=== PATIENT | female | born 1945 | race Caucasian/White ===

== ENCOUNTER 2017-04-16 09:16 | Outpatient (CLI) | payer MEDICARE, BC ==
--- NOTE | 2017-04-16 10:59 | CT ---
CT ABDOMEN AND PELVIS WITH IV AND ORAL CONTRAST: Date: 04/16/17 HISTORY: B-cell lymphoma. Elevated calcium level. Restaging. Right upper quadrant pain. COMPARISON: PET scan from 03/04/16. FINDINGS: The lung bases are clear. An oval right cardiophrenic lymph node is 2.3 cm greatest diameter. A smal l amount of free fluid is now apparent within the upper abdomen and dependent portion of the pelvis. The large lobulated confluent adenopathy involving the anterior mesentery and central mesentery is again demonstrated. Allowing for differences in technique, there has been no significant change in s ize. Small nodular peritoneal implant is present at the right posterior dependent portion of the pel vis, projecting into the free fluid. The gallbladder is surgically absent. There is calcification of the arterial structures. No evidence of bowel obstruction. IMPRESSION: 1. Small amount of abdominal fluid has developed since the PET scan 1 year ago. The confluent abdom inal adenopathy has not changed significantly in extent or size. 2. Atherosclerosis. POS: TOY
[2017-04-16] MEDS ORDERED: Iopamidol 370 76% 100 ML VIAL ONE (14:59)
== END 2017-04-16 09:17 | disposition home or self-care (01) ==
LOC: CT 09:16
PROVIDERS: ATTEND Internal Medicine Medical Oncology
DX: C82.03 Follicular lymphoma grade I, intra-abdominal lymph nodes (principal); C83.38 Diffuse large B-cell lymphoma, lymph nodes of multiple sites; R10.11 Right upper quadrant pain; R59.0 Localized enlarged lymph nodes; I70.90 Unspecified atherosclerosis
CPT/HCPCS: 74177; 82565

== ENCOUNTER 2017-04-16 22:12 | Inpatient (IN) | payer MEDICARE, BC ==
--- NOTE | 2017-04-16 23:24 | RAD ---
UPRIGHT PORTABLE CHEST ONE VIEW: 04/16/17 HISTORY: 71-year-old female with history of fever, little cough and abdominal pain. COMPARISON: 08/05/16. FINDINGS: A right subclavian catheter and injection port. Heart size is within normal limits. No confluent pne umonia, overt edema or pleural effusion. IMPRESSION: No acute intrathoracic disease. Stable from prior study. POS: STANLEYH
[2017-04-16 23:33] LABS: Lactic Acid - Sepsis 1.2 mmol/L (0.5-2.2)
[2017-04-16] MEDS ORDERED: Piperacillin/Tazobactam 3.375 GM VIAL ONE (23:36)
[2017-04-16] MEDS ORDERED: Acetaminophen 500 MG TAB ONE (23:36)
[2017-04-16] MEDS ORDERED: Sodium Chloride 0.9% 100 ML ONE (23:36)
[2017-04-16 23:37] LABS: ALT (SGPT) 10 U/L (8-55); AST (SGOT) 27 U/L (5-34); Alkaline Phosphatase 59 U/L (40-150); Anion Gap 13 mmol/L (10-20); BUN (Urea Nitrogen) 24 mg/dL (9.8-20.1); Bilirubin, Total 0.7 mg/dL (0.2-1.2); Calc. Creatinine Clearance 0 mL/min (70-130); Carbon Dioxide 24 mmol/L (23-31); Chloride 99 mmol/L (98-107); Estimated GFR-MDRD 34; Globulin 2.5 g/dL (2.4-3.5); Protein, Total 5.7 g/dL (6.0-8.3)
[2017-04-16 23:46] LABS: Band 2 % (5-11); Hematocrit 21.3 % (36.0-47.0); Mean Platelet Volume 7.5 fL (7.4-10.4); Neutrophil 69 % (42-75); Red Blood Cell (RBC) Count 2.23 mill/uL (4.20-5.40); White Blood Cell (WBC) Count 1.8 thou/uL (4.8-10.8)
[2017-04-16 23:55] LABS: Calcium 12.1 mg/dL (7.8-10.44)
[2017-04-17 01:16] LABS: Bilirubin Negative (Negative); Blood, Urine Negative (Negative); Glucose, Urine (Dipstick) Negative (Negative); Ketone, Urine Negative (Negative); Nitrite Negative (Negative); Protein, Urine (Dipstick) Negative (Neg-Trace); Urobilinogen 0.2 mg/dL (0.2-1.0)
[2017-04-17] MEDS ORDERED: HYDROcodone/Acetaminophen 5/325 mg Tablet PO PRN (02:34)
[2017-04-17] MEDS ORDERED: Ondansetron ODT 4 MG TAB PO PRN (02:34)
[2017-04-17] MEDS ORDERED: HYDROcodone/Acetaminophen 10/325 mg Tablet PO PRN (02:34)
[2017-04-17] MEDS: Sodium Chloride 0.9% 1,000 ML IV SCH ×3 (03:37→17:06)
--- NOTE | 2017-04-17 06:25 | HP ---
DATE OF ADMISSION: 04/17/2017 CHIEF COMPLAINT: Fever. HISTORY OF PRESENT ILLNESS: Ms. Cutler is a very pleasant 71-year-old female with history of lymphoma, myelodysplasia, hypertension, hyperlipidemia, who is currently undergoing chemotherapy for her myelodysplasia. She had her first cycle of this current round of treatment about 2 weeks ago, was due for a second cycle about a week ago, but due to low counts was being held. She has had some low-grade fevers for some time up to around 100, but today developed temperature to 102.3. She was sent to the emergency department for evaluation by her oncologist. There, she was noted to have confirmed fever. She has been having chills, a little bit of headache, and some dyspnea on exertion with a slight cough, but nonproductive of any other than a little bit of clear sputum. She had some right-sided abdominal pain for which she had a CAT scan done yesterday, but otherwise had no other current complaints. She does complain of chills, no rigors, no nausea, and vomiting. No diarrhea, constipation, no hematuria. She uses [employer] has livestock that her attends to, but all are well , she has been avoiding fresh fruits and vegetables, she did not have any recent travel or imported foods and no sick contacts. Her biggest complaint is constipated that she takes stool softeners for, but again had a CT scan for some right upper quadrant pains. PAST MEDICAL HISTORY: 1. Lymphoma. 2. Hypertension 3. Hyperlipidemia. 4. Myelodysplasia. PAST SURGICAL HISTORY: Include, 1. Hernia repair, 10-12 years ago. 2. Cholecystectomy in 2007 or 2008 and bilateral tubal ligation remotely. HOME MEDICATIONS: 1. Allopurinol 300 mg p.o. every other day. 2. Coreg 25 mg b.i.d. 3. D3 of 1000 units b.i.d. 4. Cozaar 50 mg daily. 5. Melatonin 3 mg p.o. at bedtime. 6. Multivitamin daily. 7. Pravastatin 40 mg p.o. at bedtime. 8. CoQ10. 9. B complex daily. 10. Nystatin swish and swallow. 11. Levofloxacin 500 mg daily for the last 6 weeks or so. 12. Magic mouthwash 10 mL p.o. q.i.d. swish and spit. FAMILY HISTORY: Negative for clotting or bleeding disorder. Dad did have liver cancer and at age 74. SOCIAL HISTORY: Significant for past tobacco. She quit on 01/11/2008 after initial diagnosis of lymphoma. She smoked about 1 pack per day for about 10 years. REVIEW OF SYSTEMS: A 10-point review of systems was performed and negative for all other systems except as stated as per HPI. PHYSICAL EXAMINATION: VITAL SIGNS: Temperature current is normal. Temperature on arrival was 100.1, temperature max on arrival was 102.3. Pulse current is 97, pulse max is 108, blood pressure 120/55, respiratory rate 16, satting 94% on room air. GENERAL: She is awake. She is alert. She is oriented X 3. She is an older white female, appears to be in no distress. and daughter at the bedside. HEENT: Normocephalic, atraumatic. Pupils equal and reactive to light bilaterally, mucous membranes are moist. She has no visible lesions or ulcers. She does have some thrush present on the tonsillar pillars and posterior oropharynx. NECK: Supple. There is no lymphadenopathy, JVD, or thyromegaly. She had normal carotid upstrokes. CHEST: Clear to auscultation bilaterally without wheeze, rales, or rhonchi. She has normal chest excursion and good air exchange. CARDIOVASCULAR: Normal S1 and S2, she is in normal cardiac and regular. She has no audible murmurs. ABDOMEN: Obese. It is nontender, nondistended. She has no rebound, rigidity, or guarding with normoactive bowel sounds present in all 4 quadrants. EXTREMITIES: Show no cyanosis, no clubbing, no edema, 2+ peripheral pulses. SKIN: Warm and was well perfused. She has no rashes, no lesions. MUSCULOSKELETAL: Normal to inspection. She has no palpable joint effusion. No hemarthrosis and no inflamed joints. NEUROLOGIC: Cranial nerves II through XII are grossly intact with normal speech pattern. She has normal strength and no focal deficits. LABORATORY EVALUATION: CMP is normal except for creatinine of 1.50 from a normal of around 0.9 to 0.99. Calcium was 12.1. Lactic acid is 1.2. Liver functions are normal. Albumin is a little bit low at 3.2. Influenza screen was negative. Urinalysis negative. CBC showed a white count of 1.8 with 69% granulocytes, 2% bands, giving her ANC total of 1278, hemoglobin 7.5, hematocrit of 21.3, and platelet count of 97,000. Chest x-ray is negative for acute cardiopulmonary disease. CT scan of the abdomen yesterday showed lymphadenopathy, primarily in the superior mesenteric area to be unchanged. She has a mild amount of fluid in the belly. There is no evidence of perforation. ASSESSMENT AND PLAN: 1. Neutropenic fever: Patient has neutropenia by some standards. Absolute neutrophil count is around 1278. She was placed on neutropenic precautions. Started on cefepime 2 grams q.12 hours, repeat labs in the morning, and ask Oncology for input. 2. Differential diagnosis includes infection versus mucositis, which I do not see evidence of, versus fever associated with reconstitution of her immune system. She stated that her white count at one point was very very low and is obviously not now. I suspect, she may be recovering her counts. 3. Acute kidney injury: Creatinine 1.5, normal is less than 1. We will hydrate her and recheck her creatinine in the morning. 4. Hypercalcemia: Unsure of the etiology. Again, we will treat with IV fluids and recheck. 5. Pancytopenia secondary to chemotherapy per Oncology. Patient is on allopurinol. 6. Hypertension on Cozaar and Coreg. We will continue. 7. Hyperlipidemia on pravastatin. We will hold that for now. 8. Prophylactic antibiotic with Levaquin, we will hold that while she is on cefepime. MTDD
[2017-04-17 06:26] LABS: Anion Gap 9 mmol/L (10-20); BUN (Urea Nitrogen) 25 mg/dL (9.8-20.1); Calc. Creatinine Clearance 0 mL/min (70-130); Carbon Dioxide 28 mmol/L (23-31); Chloride 104 mmol/L (98-107); Estimated GFR-MDRD 35
[2017-04-17 06:30] LABS: Band 8 % (5-11); Hematocrit 17.9 % (36.0-47.0); Mean Platelet Volume 7.4 fL (7.4-10.4); Neutrophil 53 % (42-75); Nucleated RBC 1 % (0); Red Blood Cell (RBC) Count 1.87 mill/uL (4.20-5.40)
[2017-04-17 06:37] VITALS: BMI 42.5
[2017-04-17] MEDS: Cefepime 2 GM in Sodium Chloride 0.9% 100 ML IVPB SCH ×2 (09:47→20:02)
[2017-04-17] MEDS: Allopurinol 300 MG TAB PO SCH (09:47)
[2017-04-17] MEDS: Docusate 100 MG CAP PO SCH ×2 (09:47→20:08)
[2017-04-17] MEDS: Acetaminophen 325 MG TAB PO PRN ×2 (09:49→20:03)
[2017-04-17] MEDS: Losartan Potassium 25 MG TAB PO SCH (09:50)
[2017-04-17] MEDS: Carvedilol 25 MG TAB PO SCH ×2 (09:50→20:11)
--- NOTE | 2017-04-17 11:14 | CON ---
DATE OF CONSULTATION: 04/17/2017 REASON FOR CONSULTATION: Neutropenic fever. HISTORY OF PRESENT ILLNESS: Ms. Cutler is a 71-year-old female, who is undergoing treatment with angie motherapy consisting of Dacogen for myelodysplastic syndrome. She has complicated oncological histo ry. She was diagnosed originally with diffuse large B-cell lymphoma in 2007, underwent treatment, a nd was in remission in 2016 when she presented with follicular lymphoma. She again underwent chemot herapy with R-CHOP. She was on maintenance Rituxan until recently. This past December, patient began t o have significant pancytopenia. She was reevaluated at [facility]. Bone marrow showed myelodyspl astic syndrome. She still had a follicular lymphoma requiring treatment. Decision was made to begi n Dacogen. She received her first cycle on 03/11 through 03/13. She presented to our clinic last [place] for cycle 2; however, she was profoundly neutropenic with a white count of 200. She has had int ermittent low-grade fevers. She was currently on a 10-day regimen of Levaquin. This past week, she complained of right rib pain. Routine chemistry showed calcium of 13. On Thursday, 04/15, for sh e was given Zometa and IV fluids. She returned on the for an additional liter of fluid. She [place] d a CT scan performed yesterday, which showed a small amount of free fluid in the abdomen. Her abdo shaquille adenopathy had not changed since the previous year's PET scan. Last night, she developed a fe rafia of 101.5. She was sent to the emergency room, so she was pancultured and started on cefepime. She has been given IV fluids. We are seeing her for neutropenic fever. PAST MEDICAL HISTORY: 1. Diffuse large B-cell lymphoma in 2007. 2. Follicular lymphoma, active. 3. Myelodysplastic syndrome. 4. Hypertension. 5. Obesity. PAST SURGICAL HISTORY: Umbilical hernia repair. Bone marrow biopsies. ALLERGIES: ADHESIVE. HOME MEDICATIONS: 1. Allopurinol 300 mg daily. 2. Coreg 25 mg b.i.d. 3. Levaquin 500 mg daily. 4. Losartan 50 mg daily. 5. Potassium chloride 10 mEq daily. 6. Pravastatin 40 mg daily. FAMILY HISTORY: Her father had liver cancer. SOCIAL HISTORY: , lives with her spouse in [place], former smoker, no alcohol or illicit dr ug use. REVIEW OF SYSTEMS: Constitutional: Positive for fever and chills. No night sweats, recent weight loss or gain. Eyes: No blurred or double vision. ENT: No pain, hoarseness, sore throat, or dysph agia. Cardiovascular: No chest pain, palpitations, or syncope. Respiratory: Positive for occasio nal shortness of breath and cough. Gastrointestinal: No nausea, vomiting, diarrhea, constipation, or abdominal pain. Genitourinary: No dysuria or hematuria. Musculoskeletal: No joint or back ingrid n. Skin: No rash or pruritus. Hematologic: No bleeding, bruising, or clotting. Neurologic: Den ies weakness, headache, numbness, tingling or seizure activity. Psychiatric: No anxiety or depress ion. PHYSICAL EXAMINATION: VITAL SIGNS: Temperature is 97.5, pulse is 93, respiratory rate 20, BP is 122/56. She is 93% on ro om air. GENERAL: Well-developed, well-nourished female, in no acute distress. HEENT: Normocephalic, atraumatic. Pupils equal and reactive to light. NECK: Supple. CARDIOVASCULAR: Regular rate and rhythm. LUNGS: Clear to auscultation. ABDOMEN: Obese and nontender. Bowel sounds are positive. EXTREMITIES: No clubbing, cyanosis, or edema. SKIN: No rash. HEMATOLOGIC: No petechia or purpura. NEUROLOGICAL: Nonfocal. PSYCHIATRIC: The patient is alert and oriented and appropriate. PERTINENT LABORATORY AND X-RAYS: Current WBCs 1.0, hemoglobin 6.3, hematocrit 17.9, platelet count 70,000, 53% neutrophils, 8% bands, 32% lymphocytes. Sodium 137, potassium 3.5, chloride 104, CO2 is 28, BUN is 25, creatinine 1.47, calcium is 11, total bilirubin is 0.7, AST is 27, ALT is 10, alkali ne phosphatase is 59, serum total protein is 5.7, albumin 3.2, globulin 2.5. Urine was negative for bacteria. Chest x-ray showed no acute process. IMPRESSION: 1. Myelodysplastic syndrome, on Dacogen chemotherapy. 2. Follicular lymphoma. 3. History of diffuse large B-cell lymphoma. 4. Hypercalcemia, status post Zometa. 5. Neutropenic fever. 6. Worsening anemia. DISCUSSION: The patient will be transfused 1 unit of packed RBCs and we will follow her CBC daily. She has been started on IV fluids. Her anemia likely has a dilutional component, as yesterday she was 7.5 and has no active bleeding; however, she does require frequent transfusions of packed red bl ood cells. She has been started on empiric antibiotics; her cultures are currently pending. She is to have a bone scan on Thursday, and will have that done as an inpatient to see if we can figure out the source of her high calcium levels, appreciate Kerrie's management and assistance. Thank you for the consult. We will follow her closely.
--- NOTE | 2017-04-17 12:55 | RAD ---
CHEST 1 VIEW: HISTORY: Neutropenic fever. COMPARISON: Chest 1 view prior day. FINDINGS: Lungs are clear. No pneumothorax or effusion. Port catheter is similar. Tip in good position. IMPRESSION: 1. No acute intrathoracic abnormality. 2. Dense mitral annular calcifications. POS: OFF
--- NOTE | 2017-04-17 13:28 | PDOC.EVN ---
Event Note - Event Note Event Note: p.n dictated # [id number]
--- NOTE | 2017-04-17 15:35 | PRG ---
DATE OF SERVICE: 04/17/2017 SUBJECTIVE: The patient is a followup case of neutropenic fever. She has a complicated oncological history. Patient is complaining of severe low back pain. She is afebrile overnight. She has some wheezing, but denies any chest pain or shortness of breath. Overall, patient says she is feeling b main. The patient says she has no abdominal discomfort today. CT scan done yesterday showed lymph adenopathy unchanged. There was no perforation. OBJECTIVE: VITAL SIGNS: On examination, her blood pressure is 122/56, temperature 97.5, pulse rate 93, respira tions 20 and O2 sat 95% on room air. CHEST: Bilateral diminished breath sounds at bases. No wheezing, no rhonchi. Patient is not tachy pneic. CARDIOVASCULAR: S1 and S2 normal. No S3, S4 or murmur. ABDOMEN: Morbidly obese, soft and nontender. Bowel sounds are active. No guarding or rebound. Th e patient has mild right upper quadrant tenderness. BACK: There is lower lumbar spinal tenderness present. EXTREMITIES: No clubbing, cyanosis or edema. LABORATORY DATA: White count has gone down to 1, hemoglobin 6.3, hematocrit 17.9, platelets are 70, neutrophils are 53, bands are 8%. Cultures are so far negative. Sodium 137, potassium 3.5, chlori de 104, CO2 of 28, BUN 25 and creatinine 1.47 about the same. Calcium is 11, improved. Glucose is 92. IMAGING DATA: Chest x-ray done yesterday was negative. ASSESSMENT: 1. Neutropenic fever, improving. 2. Worsening neutropenia. 3. Back pain, rule out diskitis. 4. Hypercalcemia, improved. 5. Acute kidney injury, improved. 6. History of lymphoma, on chemotherapy. 7. Hypertension, controlled. 8. Hyperlipidemia. 9. Morbid obesity. 10. Anemia secondary to chemotherapy, worsening. 11. Abdominal pain of uncertain etiology. DISCUSSION: At this time, the patient is medically stable. We will continue with present antibioti cs. Follow up on the cultures. Monitor white count. We will transfuse as per Oncology Service. W e will monitor neutrophil count and start on G-CSF if okay with Oncology. We will check an MRI of t he spine to rule out diskitis. We will get Infectious Disease consultation. We will monitor calciu m, which is improving. If the patient is asymptomatic, we will adjust the pain medications. We adebayo l also check another chest x-ray and monitor respiratory status closely. Discussed with patient and at bedside, all questions answered.
--- NOTE | 2017-04-17 17:12 | CON ---
DATE OF CONSULTATION: 04/17/2017 REASON FOR CONSULTATION: Fever with neutropenia. HISTORY OF PRESENT ILLNESS: A 71-year-old patient who has a history of B cell lymphoma in the abdominal area treated in 2007 and in remission until 2016 when she developed recurrence. At that time, the patient had an omental biopsy and it demonstrated follicular lymphoma. The patient had a port placed on 08/05. Then, she was diagnosed with myelodysplastic syndrome and was started on chemotherapy with Dacogen, which is a demethylating agent used in the treatment of MDS. Also, according to Selene Gomez's notes, The patient had chemotherapy of R-CHOP in 2015 with maintenance Rituxan and then in 12/2016, she was diagnosed with MDS at [facility]. She has been profoundly neutropenic with a white cell, total neutrophil count of 200 with intermittent low-grade fevers and had been given Levaquin orally. Her calcium was noted to be 13 and then she was given Zometa and IV fluids. The patient had abdominal and pelvis CT from 04/16, which demonstrated clear lung bases, right cardiophrenic lymph nodes 2.3 cm, small amount of free fluid in the abdomen, upper side and lobulated adenopathy involving the anterior mesentery and central mesentery, which had been demonstrated previously, but no other findings of significance. The patient then developed a higher temperature elevation of 101.5 and was redirected to be admitted. She has been started on cefepime. Initial labs with normal urinalysis, a white cell count of 1.8 and total neutrophil count of about 1200. Patient is currently sitting by the bedside. She has moderate pain in the right upper quadrant wrapping around the flank region, which is a little bit different than the pain that she felt from the previously diagnosed follicular lymphoma. No headache. A little bit of headaches earlier, but not anymore. No visual symptoms, sore throat, odynophagia or dysphagia, no back pain. A little bit of cough with small amount of mucoid sputum production. No nasal symptoms or ear aches. No genitourinary symptoms. No joint symptoms. No skin disorder. Patient has a port, which has been accessed and the port does not have any symptoms of pain or other inflammatory changes noted. No neurological symptoms. PAST MEDICAL HISTORY: Diffuse large B cell lymphoma in 2007, treated and then recurrence at this time follicular phenotype in the abdominal area again; myelodysplastic syndrome, currently on treatment; chemotherapy treated with R- CHOP plus with maintenance Rituxan for the lymphoma; obesity and recent episode of severe neutropenia. PAST SURGICAL HISTORY: Umbilical hernia repair, bone marrow biopsies and omental biopsy. ALLERGIES: ADHESIVE TAPE. HOME MEDICATIONS: Allopurinol, Coreg, Levaquin, losartan, potassium and pravastatin. FAMILY HISTORY: Liver cancer. SOCIAL HISTORY: . Lives in [place] or close to it. Former smoker, quit in 2007. Drinks occasionally. PHYSICAL EXAMINATION: VITAL SIGNS: T-max 99, blood pressure 103/50, pulse 90, respirations 16-20 and O2 sat 93% to 95%. GENERAL: Appears in no distress. No abnormalities. SKIN: Port is accessed without inflammatory changes. No lymphadenopathy noted. HEENT: Ocular movements are conjugate. Oral cavity is normal. NECK: Supple. LUNGS: Symmetric breath sounds with faint basilar crackles, which cleared after deep breathing. A little bit of wheezing, but very faint in the anterior chest. HEART: S1 and S2, regular rate. No S3, S4 or murmurs. ABDOMEN: Protuberant, mildly tender in the right upper quadrant. No ascites noted. No organomegaly or bladder distention. EXTREMITIES: No joint inflammatory activity. Patient has 2+ edema in the lower extremities. Pulses are 1+ in dorsalis pedis. Cap refill is less than 3 seconds. Strength in all extremities are preserved. NEUROLOGIC: Cognitive function appears to be intact. LABORATORY AND IMAGING DATA: Today's white cell count 1.0 with total neutrophil count around 700 and hemoglobin of 6, MCV 95 and platelets 70. Sodium 137, creatinine 1.47, calcium is down to 11. Liver profile normal. Albumin 3.2. Chest x-ray with no obvious infiltrates. Abdomen and pelvis CT with the findings as described above. ASSESSMENT AND PLAN: Follicular lymphoma, which developed following treatment for B cell lymphoma few years ago. Now, patient with myelodysplastic syndrome, receiving a demethylating agent. Patient is admitted with fever and moderate neutropenia, some cough and a mild to moderate abdominal pain in the right upper quadrant with no dramatic findings in the CT scan of the abdomen. The patient has a port in place and therefore we will have to monitor blood cultures until the final results to make sure the device is not colonized. Patient presents as a low risk neutropenic presentation since the ANC count is higher than 500 and could potentially continue management in the outpatient setting if blood cultures remain negative until tomorrow. Transient bacteremia associated with the neutropenia is the more likely scenario. An early respiratory tract infection was not disclosed by the x-ray as not a possibility , a viral infection by different respiratory virus is considered, then we will go ahead and submit respiratory virus PCR panel. Opportunistic infectious processes are less likely, although not completely ruled out, and workup for such might be needed depending on clinical progress. MTDD
[2017-04-17] MEDS: Melatonin 3 MG TAB PO SCH (20:04)
[2017-04-18] MEDS: Sodium Chloride 0.9% 1,000 ML IV SCH (03:04)
[2017-04-18 07:01] LABS: Anisocytosis SLIGHT = 6-15 cells (100X) (0-5/hpf); Band 4 % (5-11); Hematocrit 21.3 % (36.0-47.0); Macrocytosis SLIGHT = 6-15 cells (100X) (0-5/hpf); Mean Platelet Volume 7.1 fL (7.4-10.4); Metamyelocyte 2 % (0-0); Neutrophil 56 % (42-75); Polychromasia SLIGHT = 2-3 cells (100X) (0-2/hpf); Red Blood Cell (RBC) Count 2.22 mill/uL (4.20-5.40); White Blood Cell (WBC) Count 1.7 thou/uL (4.8-10.8)
[2017-04-18 08:49] LABS: ALT (SGPT) 10 U/L (8-55); AST (SGOT) 33 U/L (5-34); Alkaline Phosphatase 53 U/L (40-150); Anion Gap 11 mmol/L (10-20); BUN (Urea Nitrogen) 19 mg/dL (9.8-20.1); Bilirubin, Total 0.3 mg/dL (0.2-1.2); Calc. Creatinine Clearance 62 mL/min (70-130); Calcium 10.7 mg/dL (7.8-10.44); Carbon Dioxide 24 mmol/L (23-31); Chloride 109 mmol/L (98-107); Estimated GFR-MDRD 38; Globulin 2.2 g/dL (2.4-3.5)
[2017-04-18] MEDS: Cefepime 2 GM in Sodium Chloride 0.9% 100 ML IVPB SCH ×2 (08:58→22:07)
[2017-04-18] MEDS: Carvedilol 25 MG TAB PO SCH ×2 (08:58→22:08)
[2017-04-18] MEDS: Docusate 100 MG CAP PO SCH ×2 (08:59→22:08)
[2017-04-18] MEDS: Losartan Potassium 25 MG TAB PO SCH (09:00)
[2017-04-18] MEDS ORDERED: Albuterol Sulfate 1.25 MG/3 ML NEB NEB PRN (10:42)
[2017-04-18] MEDS ORDERED: Furosemide 40 MG/4 ML VIAL SLOW IVP SCH (11:00)
--- NOTE | 2017-04-18 11:22 | PDOC.PN ---
- Subjective Encounter Start Date: 04/18/17 Encounter Start Time: 09:00 Subjective: pt c/o wheezing and LBP last PM. no fever -: received 1 unit PRBC yesterday -: ID/ oncology input appreciated pt states she still [place] sburning sensation to rt side of abdomen and pain radiating down rt foot - Objective Resuscitation Status: Resuscitation Status FULL:Full Resuscitation Vital Signs & Weight: Vital Signs (12 hours) Temp Pulse Resp BP Pulse Ox 04/18/17 11:11 97.9 F 77 18 105/50 L 97 04/18/17 08:52 98.2 F 95 18 135/60 97 I&O: 04/17/17 04/18/17 04/19/17 06:59 06:59 06:59 Intake Total 350 Balance 350 Result Diagrams: 04/18/17 06:05 04/18/17 06:07 Phys Exam - Physical Examination HEENT: PERRLA, moist MMs Neck: no nodes, no JVD, supple b/ l crackles present Cardiovascular: RRR, no significant murmur, no rub, gallop Gastrointestinal: soft, non-tender, no distention, positive bowel sounds pt is morbidly obese Musculoskeletal: no edema, pulses present, edema present Neurological: non-focal, normal sensation Lymphatic: no nodes Psychiatric: normal affect, A&O x 3 Dx/Plan (1) Neutropenic fever Code(s): D70.9 - NEUTROPENIA, UNSPECIFIED; R50.81 - FEVER PRESENTING WITH CONDITIONS CLASSIFIED ELSEWHERE Status: Acute (2) Lymphoma Status: Acute (3) MDS (myelodysplastic syndrome) Code(s): D46.9 - MYELODYSPLASTIC SYNDROME, UNSPECIFIED Status: Acute (4) Fluid overload Code(s): E87.70 - FLUID OVERLOAD, UNSPECIFIED Status: Acute (5) Acute bilateral low back pain with sciatica Code(s): M54.40 - LUMBAGO WITH SCIATICA, UNSPECIFIED SIDE Status: Acute (6) Obesity Code(s): E66.9 - OBESITY, UNSPECIFIED Status: Acute (7) Anemia due to chemotherapy Code(s): D64.81 - ANEMIA DUE TO ANTINEOPLASTIC CHEMOTHERAPY; T45.1X5A - ADVERSE EFFECT OF ANTINEOPLASTIC AND IMMUNOSUP DRUGS, INIT Status: Acute - Plan we adebayo stop iv fluids. will giv elasix x 1. add prn neubulisers. -: monitor Hb.Cont currnet IV abx. -: pt to decide on MRI. monitor back pain -: bone scan on Thursday * .
[2017-04-18 11:47] LABS: Anion Gap 12 mmol/L (10-20); BUN (Urea Nitrogen) 18 mg/dL (9.8-20.1); Calc. Creatinine Clearance 63 mL/min (70-130); Calcium 10.3 mg/dL (7.8-10.44); Carbon Dioxide 23 mmol/L (23-31); Chloride 108 mmol/L (98-107); Estimated GFR-MDRD 39
[2017-04-18 12:40] LABS: Band 7 % (5-11); Hematocrit 22.1 % (36.0-47.0); Mean Platelet Volume 7.5 fL (7.4-10.4); Metamyelocyte 1 % (0-0); Neutrophil 57 % (42-75); Reactive Lymphocytes 1 % (0-10); White Blood Cell (WBC) Count 1.7 thou/uL (4.8-10.8)
[2017-04-18] MEDS: Melatonin 3 MG TAB PO SCH (22:06)
[2017-04-19 07:19] LABS: ALT (SGPT) 13 U/L (8-55); AST (SGOT) 31 U/L (5-34); Alkaline Phosphatase 51 U/L (40-150); Anion Gap 9 mmol/L (10-20); BUN (Urea Nitrogen) 16 mg/dL (9.8-20.1); Band 2 % (5-11); Bilirubin, Total 0.5 mg/dL (0.2-1.2); Calc. Creatinine Clearance 72 mL/min (70-130); Carbon Dioxide 25 mmol/L (23-31); Chloride 108 mmol/L (98-107); Estimated GFR-MDRD 45; Globulin 2.2 g/dL (2.4-3.5); Hematocrit 21.8 % (36.0-47.0); Mean Platelet Volume 7.9 fL (7.4-10.4); Neutrophil 58 % (42-75); Nucleated RBC 2 % (0); Protein, Total 4.9 g/dL (6.0-8.3); Red Blood Cell (RBC) Count 2.26 mill/uL (4.20-5.40); White Blood Cell (WBC) Count 1.7 thou/uL (4.8-10.8)
[2017-04-19] MEDS ORDERED: Furosemide 40 MG/4 ML VIAL SLOW IVP SCH (09:00)
[2017-04-19] MEDS: Allopurinol 300 MG TAB PO SCH (09:18)
[2017-04-19] MEDS: Docusate 100 MG CAP PO SCH ×2 (09:18→20:19)
[2017-04-19] MEDS: Cefepime 2 GM in Sodium Chloride 0.9% 100 ML IVPB SCH ×2 (09:30→20:14)
--- NOTE | 2017-04-19 09:43 | PDOC.PN ---
- Subjective Encounter Start Date: 04/19/17 Encounter Start Time: 08:00 Subjective: pt feels better. -: back pain improved - Objective Resuscitation Status: Resuscitation Status FULL:Full Resuscitation Vital Signs & Weight: Vital Signs (12 hours) Temp Pulse Resp BP Pulse Ox 04/19/17 08:00 98 F 87 16 141/63 H 95 I&O: 04/18/17 04/19/17 04/20/17 06:59 06:59 06:59 Intake Total 350 1050 Balance 350 1050 Result Diagrams: 04/19/17 06:36 04/19/17 06:36 Phys Exam - Physical Examination HEENT: PERRLA, moist MMs, sclera anicteric, TM's clear, oral pharynx no lesions Neck: no nodes, no JVD Respiratory: no wheezing b/l min crackles at bases Cardiovascular: RRR, no significant murmur, no rub Gastrointestinal: soft, non-tender, no distention, positive bowel sounds Neurological: non-focal, normal sensation, moves all 4 limbs Dx/Plan (1) Neutropenic fever Code(s): D70.9 - NEUTROPENIA, UNSPECIFIED; R50.81 - FEVER PRESENTING WITH CONDITIONS CLASSIFIED ELSEWHERE Status: Acute (2) Lymphoma Status: Acute (3) MDS (myelodysplastic syndrome) Code(s): D46.9 - MYELODYSPLASTIC SYNDROME, UNSPECIFIED Status: Acute (4) Fluid overload Code(s): E87.70 - FLUID OVERLOAD, UNSPECIFIED Status: Acute (5) Acute bilateral low back pain with sciatica Code(s): M54.40 - LUMBAGO WITH SCIATICA, UNSPECIFIED SIDE Status: Acute (6) Obesity Code(s): E66.9 - OBESITY, UNSPECIFIED Status: Acute (7) Anemia due to chemotherapy Code(s): D64.81 - ANEMIA DUE TO ANTINEOPLASTIC CHEMOTHERAPY; T45.1X5A - ADVERSE EFFECT OF ANTINEOPLASTIC AND IMMUNOSUP DRUGS, INIT Status: Acute - Plan we will give one dose of lasix. cont IV abx. -: pt for bone scan in AM. neutropenia improving * .
[2017-04-19] MEDS: Carvedilol 25 MG TAB PO SCH ×2 (12:01→20:17)
[2017-04-19] MEDS: Losartan Potassium 25 MG TAB PO SCH (12:02)
[2017-04-19] MEDS: Melatonin 3 MG TAB PO SCH (20:17)
[2017-04-20 06:30] LABS: ALT (SGPT) 12 U/L (8-55); AST (SGOT) 29 U/L (5-34); Alkaline Phosphatase 52 U/L (40-150); Anion Gap 11 mmol/L (10-20); BUN (Urea Nitrogen) 23 mg/dL (9.8-20.1); Bilirubin, Total 0.5 mg/dL (0.2-1.2); Calc. Creatinine Clearance 56 mL/min (70-130); Calcium 10.5 mg/dL (7.8-10.44); Carbon Dioxide 26 mmol/L (23-31); Chloride 105 mmol/L (98-107); Estimated GFR-MDRD 33; Globulin 2.3 g/dL (2.4-3.5)
[2017-04-20 06:48] LABS: Anisocytosis SLIGHT = 6-15 cells (100X) (0-5/hpf); Band 4 % (5-11); Hematocrit 21.1 % (36.0-47.0); Mean Platelet Volume 7.2 fL (7.4-10.4); Neutrophil 64 % (42-75); Reactive Lymphocytes 1 % (0-10); Red Blood Cell (RBC) Count 2.19 mill/uL (4.20-5.40); White Blood Cell (WBC) Count 1.7 thou/uL (4.8-10.8)
[2017-04-20] MEDS: Cefepime 2 GM in Sodium Chloride 0.9% 100 ML IVPB SCH (08:04)
[2017-04-20] MEDS: Losartan Potassium 25 MG TAB PO SCH (08:04)
[2017-04-20] MEDS: Docusate 100 MG CAP PO SCH (08:06)
[2017-04-20] MEDS: Carvedilol 25 MG TAB PO SCH (08:15)
--- NOTE | 2017-04-20 12:52 | PDOC.PN ---
- Subjective Encounter Start Date: 04/20/17 Encounter Start Time: 12:50 Patient seen at bedside. No overnight events, no new complaints. - Objective Resuscitation Status: Resuscitation Status FULL:Full Resuscitation MAR Reviewed: Yes Vital Signs & Weight: Vital Signs (12 hours) Temp Pulse Resp BP Pulse Ox 04/20/17 08:05 98.1 F 86 16 120/67 97 04/20/17 08:00 98.1 F 86 16 04/20/17 04:11 98.7 F 78 16 101/49 L 94 L I&O: 04/19/17 04/20/17 04/21/17 06:59 06:59 06:59 Intake Total 1050 Balance 1050 Result Diagrams: 04/20/17 05:00 04/20/17 05:00 Phys Exam - Physical Examination Constitutional: NAD HEENT: moist MMs Neck: no JVD Respiratory: no rales Cardiovascular: RRR, no significant murmur Gastrointestinal: non-tender Trace edema b/l Neurological: moves all 4 limbs Psychiatric: normal affect, A&O x 3 Deviation from normal: Mediport in place Dx/Plan (1) Lymphoma Status: Chronic (2) MDS (myelodysplastic syndrome) Code(s): D46.9 - MYELODYSPLASTIC SYNDROME, UNSPECIFIED Status: Chronic (3) Neutropenic fever Code(s): D70.9 - NEUTROPENIA, UNSPECIFIED; R50.81 - FEVER PRESENTING WITH CONDITIONS CLASSIFIED ELSEWHERE Status: Resolved - Plan cont current plan of care, plan discussed w/ family, out of bed/ambulate * For Bone scan today for hypercalcemia. * Will receive 1 unit of PRBC after bone scan * As per Onc, ok to d/c with f/u on Thursday afterwards. * D/C ABX
--- NOTE | 2017-04-20 13:51 | NM ---
WHOLE BODY BONE SCAN: Date: 04/20/17 HISTORY: Myelodysplastic syndrome, large B cell lymphoma, follicular lymphoma, hypercalcemia. RADIOPHARMACEUTICAL: 32 mCi technetium 99m-DMP injected intravenously. FINDINGS: There is foci of tracer clumping in the MediPort and its tubing in the right side of the chest. Increased uptake in the elbows, wrists, knees, and feet are consistent with degenerative changes. Th ere are no other abnormal areas of tracer localization seen in the skeleton. Tracer excretion throug h the kidneys is within normal limits. IMPRESSION: No scintigraphic evidence of metastatic disease or hyperparathyroidism. POS: [facility]
[2017-04-20] MEDS: Acetaminophen 325 MG TAB PO PRN (15:33)
[2017-04-20 18:40] VITALS: BP 147/63; TEMP 98.6
--- NOTE | 2017-04-20 21:30 | DIS ---
DATE OF ADMISSION: 04/17/2017 DATE OF DISCHARGE: 04/20/2017 DISCHARGE DISPOSITION: Home. DISCHARGE FOLLOWUP: 1. Dr. Prado on Thursday04/22/2017. 2. Dr. Rand. DISCHARGE DIAGNOSES: 1. Neutropenic fever, resolved with cultures negative. 2. Active follicular lymphoma, currently undergoing treatment. 3. Myelodysplastic syndrome. 4. History of diffuse large B-cell lymphoma. 5. Hypertension. 6. Obesity. DISCHARGE MEDICATIONS: 1. Allopurinol 300 mg p.o. every other day. 2. Coreg 25 mg p.o. b.i.d. 3. Vitamin D supplements. 4. Cozaar 50 mg p.o. daily. 5. Melatonin. 6. Pravastatin 40 mg p.o. daily. 7. CoQ10 100 mg p.o. b.i.d. Please note that these are all the same medication, she arrived and there have been no medication ch angalonso. INPATIENT CONSULTATIONS: 1. Dr. Jovel, Infectious Disease. 2. Dr. Prado, Hematology/Oncology. INPATIENT PROCEDURES: None. INPATIENT RADIOGRAPHIC EXAMINATIONS: 1. Chest x-ray which revealed no active intrathoracic disease. 2. Repeat chest x-ray which revealed no acute intrathoracic abnormalities. 3. Nuclear medicine bone scan which revealed no scintigraphic evidence of metastatic disease or hyp erparathyroidism. HISTORY OF PRESENT ILLNESS: Ms. Noris Cutler is a 71-year-old female, who currently has MDS as well as active follicular lymphoma, who presented to the emergency room complaining of a fever. The patient states that she had high grade fevers up to 102.0 and 103.0. Night prior to admission, she had a fever of 101.5. In addition, she was noted to be hypercalcemic with a calcium of 12.1 on admission. She was then pancultured, given IV fluids and then subsequently admitted. While here, she was maintained on empiric antibiotics as well as on IV fluids. The patient's blood cultures hav e been negative and there has been nothing on imaging to show an active infection. It was thought t he patient may have a transient viral infection versus bone marrow reconstitution. Her antibiotics have been discontinued. In regard to her hypercalcemia, prior to admission, she was given Zometa. Here in the hospital, she received IV fluids and her calcium levels have gone back to normal. Becau se of her hypercalcemia, there is a questionability in concern that the patient may have metastatic disease or hyperparathyroid lesion. A nuclear bone scan was performed, which was negative. The pat ient has returned back to baseline. She has been afebrile for more than 48 hours. She will be disc harged home later today and we will follow up with Dr. Prado. The patient prior to discharge did receive 1 unit of PRBCs secondary to her anemia, which is due to MDS. She tolerated the transfusio n well and will be discharged thereafter. DISCHARGE DIET: Heart healthy. ACTIVITY: As tolerated. RESTRICTIONS: None. CODE STATUS: Full code. ALLERGIES: ADHESIVE. FOLLOWUP: With Dr. Prado. I have explained all this to the patient as well as the family at bedside, they agreeable to the queenie n of discharge. All questions have been answered. Time required to prepare for discharge 33 minutes.
== END 2017-04-20 18:54 | disposition home or self-care (01) | DRG 809 ==
LOC: ERS 22:12 → ONC 04-17
PROVIDERS: ADMIT Internal Medicine Infectious Disease; ATTEND Internal Medicine Infectious Disease
PROC: 30233N1 Transfusion of Nonautologous Red Blood Cells into Peripheral Vein, Percutaneous Approach (ICD-10-PCS; principal; 2017-04-20)
DX: D70.9 Neutropenia, unspecified (principal); C82.90 Follicular lymphoma, unspecified, unspecified site; N17.9 Acute kidney failure, unspecified; Z68.41 Body mass index [BMI] 40.0-44.9, adult; E87.70 Fluid overload, unspecified; C82.03 Follicular lymphoma grade I, intra-abdominal lymph nodes; C83.38 Diffuse large B-cell lymphoma, lymph nodes of multiple sites; B37.9 Candidiasis, unspecified; I10 Essential (primary) hypertension; D46.9 Myelodysplastic syndrome, unspecified; M54.40 Lumbago with sciatica, unspecified side; E83.52 Hypercalcemia; R50.81 Fever presenting with conditions classified elsewhere; Z92.21 Personal history of antineoplastic chemotherapy; Z90.49 Acquired absence of other specified parts of digestive tract; Z98.51 Tubal ligation status; D61.810 Antineoplastic chemotherapy induced pancytopenia; E78.5 Hyperlipidemia, unspecified; E66.01 Morbid (severe) obesity due to excess calories; Z87.891 Personal history of nicotine dependence; E86.0 Dehydration; R10.11 Right upper quadrant pain; R59.0 Localized enlarged lymph nodes; I70.90 Unspecified atherosclerosis
CPT/HCPCS: 36415; 36430; 71010; 78306; 80048; 80053; 81003; 83605; 85025; 86850; 86900; 86901; 87040; 87086; 87633; 96365; 96367; A4216; A9503; J0692; J1642; J1940; J2543; J3370; J7050; P9016

== ENCOUNTER 2017-05-12 18:23 | Inpatient (IN) | payer MEDICARE, BC ==
[2017-05-12 19:02] LABS: Bilirubin Negative (Negative); Blood, Urine Trace (Negative); Glucose, Urine (Dipstick) Negative (Negative); Ketone, Urine Negative (Negative); Nitrite Negative (Negative); Protein, Urine (Dipstick) 100 mg/dL (Neg-Trace)
[2017-05-12 19:05] LABS: Bacteria/HPF None Seen HPF (None Seen); Hyaline Casts/LPF 0-3 HYALINE CAST LPF (0-3 Hyaline); Squamous Epithelial 0-3 HPF (0-3); WBC/HPF 0-3 HPF (0-3)
[2017-05-12 19:15] LABS: Hematocrit 24.8 % (36.0-47.0); Mean Platelet Volume 12.4 fL (7.4-10.4); Red Blood Cell (RBC) Count 2.66 mill/uL (4.20-5.40); White Blood Cell (WBC) Count Less than 0.1 thou/uL (4.8-10.8)
[2017-05-12 19:17] LABS: ALT (SGPT) 31 U/L (8-55); AST (SGOT) 31 U/L (5-34); Alkaline Phosphatase 65 U/L (40-150); Anion Gap 13 mmol/L (10-20); BUN (Urea Nitrogen) 33 mg/dL (9.8-20.1); Bilirubin, Total 1.6 mg/dL (0.2-1.2); Calc. Creatinine Clearance 0 mL/min (70-130); Calcium 11.2 mg/dL (7.8-10.44); Carbon Dioxide 33 mmol/L (23-31); Chloride 93 mmol/L (98-107); Estimated GFR-MDRD 24; Globulin 2.5 g/dL (2.4-3.5); Protein, Total 6.1 g/dL (6.0-8.3)
[2017-05-12 19:21] LABS: Anisocytosis SLIGHT = 6-15 cells (100X) (0-5/hpf)
[2017-05-12 19:34] LABS: Magnesium 1.1 mg/dL (1.6-2.6); Prothrombin Time 14.3 SEC (12.0-14.7)
--- NOTE | 2017-05-12 20:35 | RAD ---
AP VIEW OF THE CHEST 05/12/17 INDICATION: History of cancer and fever. COMPARISON: Prior exam dated 04/17/17. IMPRESSION: No acute cardiopulmonary abnormality. The examination is not appreciably changed from the comparison study. POS: [facility]
[2017-05-12] MEDS ORDERED: Cefepime 2 GM, Syringe 2.5 ML in Sterile Water 10 ML SLOW IVP SCH (21:30)
[2017-05-12] MEDS ORDERED: Ondansetron ODT 4 MG TAB SL PRN (23:49)
[2017-05-12] MEDS ORDERED: Ondansetron HCl/PF 4 MG/2 ML Vial IVP PRN (23:49)
[2017-05-12] MEDS ORDERED: Acetaminophen 325 MG TAB PO PRN (23:49)
[2017-05-13 01:26] VITALS: BMI 42.5
[2017-05-13] MEDS ORDERED: Labetalol HCl 100 MG/20 ML VIAL SLOW IVP PRN (06:10)
[2017-05-13] MEDS ORDERED: Diabetic Tussin 200 MG/10 ML UDCUP PO PRN (06:10)
[2017-05-13] MEDS ORDERED: Calcium Carbonate 500 MG ChewTAB PO PRN (06:12)
[2017-05-13] MEDS ORDERED: Senokot 8.6 MG TAB PO PRN (06:12)
[2017-05-13] MEDS ORDERED: Ondansetron ODT 4 MG TAB PO PRN (06:12)
[2017-05-13] MEDS ORDERED: Mag-Al 1200 mg/1200 mg/30 ML UDCUP PO PRN (06:12)
[2017-05-13] MEDS ORDERED: Bisacodyl 10 MG SUPP PR PRN (06:12)
[2017-05-13] MEDS ORDERED: Magnesium Sulfate 4 GM in Sodium Chloride 0.9% 250 ML 250 ML IVPB SCH (06:15)
[2017-05-13] MEDS ORDERED: Vancomycin HCl 1 GM in Premix Bag 1 BAG IVPB SCH ×2 (06:15→10:00)
[2017-05-13 06:21] LABS: Hematocrit 19.9 % (36.0-47.0); Mean Platelet Volume 9.1 fL (7.4-10.4); Red Blood Cell (RBC) Count 2.16 mill/uL (4.20-5.40); White Blood Cell (WBC) Count Less than 0.1 thou/uL (4.8-10.8)
[2017-05-13 06:28] LABS: Anisocytosis SLIGHT = 6-15 cells (100X) (0-5/hpf)
[2017-05-13 06:31] LABS: Anion Gap 12 mmol/L (10-20); BUN (Urea Nitrogen) 34 mg/dL (9.8-20.1); BUN/Creatinine Ratio 16.92; Calc. Creatinine Clearance 43 mL/min (70-130); Calcium 10.3 mg/dL (7.8-10.44); Carbon Dioxide 31 mmol/L (23-31); Chloride 98 mmol/L (98-107); Estimated GFR-MDRD 25; Magnesium 1.3 mg/dL (1.6-2.6); Phosphorus 3.3 mg/dL (2.3-4.7)
--- NOTE | 2017-05-13 06:31 | HP ---
DATE OF ADMISSION: 05/13/2017 PRIMARY CARE PHYSICIAN: Dr. Rand. PRIMARY ONCOLOGIST: The patient follows Dr. Prado as well as [facility]. CHIEF COMPLAINT: Fever. HISTORY OF PRESENT ILLNESS: The patient is a 71-year-old female with myelodysplastic syndrome with active follicular lymphoma, currently on chemotherapy who presented to the emergency room with above complaints. Last month, the patient was admitted at this facility for neutropenic fever. Her cultures were nega tive. She was admitted recently at [facility] and received chemotherapy. The patient developed fever with maximum temperature up to 102 degree Fahrenheit for which she presented to the emergency room. She also had intermittent nosebleeds over the last 2 days. No cough, shortness of breath, wh eezing, abdominal pain, nausea, vomiting, dysuria, hematuria, urgency or new skin rash reported. No recent immobilization, travel. She is compliant with all of her medications. In the emergency room, her maximum temperature was 100.2 with respiration 18, pulse 85, blood pressu re 143/38 with O2 saturation 95% on room air. Her WBC count was less than 0.1 with platelet count o f 5. H\T\H was 8.2/24.8. She received vancomycin and cefepime after blood cultures and urine cultu re. PAST MEDICAL HISTORY: 1. Follicular lymphoma, currently on chemotherapy. 2. Myelodysplastic syndrome. 3. Hypertension. 4. Morbid obesity with a BMI of 42.5. PAST SURGICAL HISTORY: 1. Hernia repair. 2. MediPort placement. 3. Cholecystectomy. 4. Bilateral tubal ligation. ALLERGIES: Patient is allergic to ADHESIVE. CURRENT HOME MEDICATIONS: To be verified. Patient does not remember the exact dosages of all of he r medications. FAMILY HISTORY: Father with liver cancer. SOCIAL HISTORY: She is a remote smoker, no current use of alcohol or drug use. REVIEW OF SYSTEMS: The following complete review of systems was negative, unless otherwise mentione d in the HPI or below: Constitutional: Weight loss or gain, ability to conduct usual activities. Skin: Rash, itching. Eyes: Double vision, pain. ENT/Mouth: Nose bleeding, neck stiffness, pain, tenderness. Cardiovascular: Palpitations, dyspnea on exertion, orthopnea. Respiratory: Shortness of breath, wheezing, cough, hemoptysis, fever or night sweats. Gastrointestinal: Poor appetite, abdominal pain, heartburn, nausea, vomiting, constipation, or diar cely. Genitourinary: Urgency, frequency, dysuria, nocturia. Musculoskeletal: Pain, swelling. Neurologic/Psychiatric: Anxiety, depression. Allergy/Immunologic: Skin rash, bleeding tendency. PHYSICAL EXAMINATION: VITAL SIGNS: As discussed above. GENERAL: A 71-year-old female, in no apparent distress. HEENT: Head is atraumatic, normocephalic. Sclerae are anicteric. Moist mucous membrane, no oral l esion. NECK: Supple, no JVD, no carotid bruit. LUNGS: Clear to auscultation bilaterally. HEART: S1, S2 present. Regular rate and rhythm. ABDOMEN: Soft, nontender, bowel sounds present. EXTREMITIES: A 1+ edema in bilateral lower extremities. No calf tenderness. NEUROLOGIC: Grossly nonfocal, moves all four extremities. PSYCHIATRY: Alert, awake, oriented x3. SKIN: Warm and dry. LYMPH NODES: No palpable lymph nodes in the neck. PERIPHERAL VASCULAR: Radial pulses palpable bilaterally. MUSCULOSKELETAL: No joint swelling or tenderness. LABORATORY FINDINGS AND IMAGING: As discussed above. BUN was 33, creatinine was 2.06. Baseline cr eatinine last hospitalization was 1.56. Chest x-ray by my review was negative for infiltrate. Rece nt abdominal CT with contrast by my review showed abdominal adenopathy. IMPRESSION: 1. Neutropenic fever. [facility] We will continue vancom ycin and cefepime. Await cultures. Consult Oncology. Gentle intravenous hydration. We will hold home dose of Lasix for now. 2. Acute kidney injury. We will hold Lasix and start gentle hydration. 3. Hypercalcemia, probably secondary to malignancy in the setting of dehydration. 4. Pancytopenia secondary to chemotherapy. 5. Hypertension. We will continue to monitor. 6. Hyperlipidemia. Plan of care was discussed with the patient and the family at the bedside, they stated understanding . CODE STATUS: FULL CODE. SURROGATE DECISION MAKER: The patient makes her own decisions with the help of her family.
[2017-05-13] MEDS: Sodium Chloride 0.9% 1,000 ML IV SCH (06:48)
[2017-05-13] MEDS ORDERED: Cefepime 2 GM, Syringe 2.5 ML in Sterile Water 10 ML SLOW IVP SCH ×3 (07:00→23:59)
[2017-05-13] MEDS: Sodium Chloride 0.65% Nasal 44 ML BOT EA NARE SCH ×3 (08:49→21:13)
[2017-05-13] MEDS: Docusate 100 MG CAP PO SCH ×2 (08:50→21:12)
[2017-05-13] MEDS: Acetaminophen 325 MG TAB PO PRN (13:36)
[2017-05-13] MEDS ORDERED: Polyethylene Glycol 3350 17 GM Packet PO PRN (14:53)
--- NOTE | 2017-05-13 16:28 | CON ---
DATE OF CONSULTATION: 05/13/2017 REASON FOR CONSULTATION: Pancytopenia. HISTORY OF PRESENT ILLNESS: Ms. Cutler is a pleasant 71-year-old female with a complicated oncologic al history. She was diagnosed with diffuse large B cell lymphoma. In 2007, she underwent treatment with R-CHOP, received 6 cycles. She was in remission and just monitored by a CT scan. In 2014, a CT scan showed an enlarging mass. She was biopsied and it showed a low-grade follicular lymphoma. She was treated with single agent Rituxan. In 2016, she again received Rituxan and bendamustine fo r abdominal mass. She was diagnosed with myelodysplastic syndrome in 02/2017. She had one cycle of Darzalex and was myelosuppressed for 6 weeks. During this time, she began to have more abdominal p ain and bloating. She was sent back to [facility] for further evaluation. They saw her this past week and started chemotherapy for her lymphoma. It was high dose Cytoxan and Rituxan with a 3-day r egimen that was completed on Friday 05/04. She received a Neulasta injection on 05/05. She was see n in our clinic on Thursday and found to be neutropenic; however, she had no fever until yesterday wh en she noted a fever of 101.5. Because of her known neutropenia, she was sent to the [facility] room for evaluation. She was pancultured and started on empiric antibiotics and admitted for further evaluation. PAST MEDICAL HISTORY: 1. Diffuse large B cell lymphoma 01/2008. 2. Relapse with follicular lymphoma 2015. 3. Myelodysplastic syndrome 02/2017. 4. Hypercalcemia 04/2017. 5. Renal impairment. 6. Hypertension. 7. Obesity. 8. Hypertension. PAST SURGICAL HISTORY: 1. Multiple biopsies. 2. Umbilical surgery. ALLERGIES: No known drug allergies. HOME MEDICATIONS: 1. Allopurinol 300 mg daily. 2. Coreg 25 mg b.i.d. 3. Pepcid 20 mg daily. 4. Furosemide 40 mg daily. 5. Losartan 500 mg daily. 6. Potassium chloride 20 mEq b.i.d. 7. Pravastatin 40 mg daily. 8. Tramadol p.r.n. 9. D3 1000 units daily. FAMILY HISTORY: Her father had liver cancer. SOCIAL HISTORY: , lives with her spouse. No alcohol, tobacco or illicit drug use. REVIEW OF SYSTEMS: Twelve-point review of systems is negative except for noted in HPI. PHYSICAL EXAMINATION: VITAL SIGNS: Temperature is 98.7, pulse 77, respiratory rate 20 and BP is 112/58. She is 98% on ro om air. GENERAL: A well-developed, well-nourished female in no acute distress. HEENT: Normocephalic and atraumatic. Pupils are equal and reactive to light. NECK: Supple. CARDIOVASCULAR: Regular rate and rhythm. LUNGS: Clear to auscultation. ABDOMEN: Obese and nontender. Bowel sounds are positive. EXTREMITIES: No clubbing, cyanosis or edema. SKIN: No rash. HEMATOLOGIC: No petechia or purpura. NEUROLOGIC: Nonfocal. PSYCHIATRIC: The patient is alert and oriented and appropriate. PERTINENT LABORATORY AND X-RAY FINDINGS: Current WBCs are 100, hemoglobin 6.6, hematocrit 19.9 and platelet count is 32,000. PT is 14.3, INR is 1.1 and PTT is 26.5. Chemistry shows sodium of 138, p otassium 3.2, chloride 98, CO2 is 31, BUN is 34, creatinine 2, glucose is 130, calcium 10.3, phospho kaley 3.3, magnesium 1.3, total bilirubin is 1.6, AST 31, ALT is 31 and alkaline phosphatase is 65. C reatinine kinase is 16, serum total protein 6.1, albumin 3 and globulin 2.5. Urine was negative for bacteria. ASSESSMENT: 1. Diffuse large B cell lymphoma, status post chemotherapy with Rituxan and Cytoxan. 2. Myelodysplastic syndrome. 3. Pancytopenia secondary to #2. DISCUSSION: The patient has been started on empiric antibiotics. She has been afebrile for the pas t 24 hours. She has been transfused 1 unit of packed RBCs. We will transfuse additional unit. She has also received a unit of platelets. We will continue to monitor her CBC. Her Neulasta, which s he received approximately 8 days ago should start to work in the next day or so. We will provide gardner pportive care, monitor her closely. Thank you for the consult.
[2017-05-14 06:29] LABS: Hematocrit 25.7 % (36.0-47.0); Red Blood Cell (RBC) Count 2.82 mill/uL (4.20-5.40); White Blood Cell (WBC) Count Less than 0.1 thou/uL (4.8-10.8)
[2017-05-14 06:46] LABS: ALT (SGPT) 66 U/L (8-55); AST (SGOT) 55 U/L (5-34); Alkaline Phosphatase 67 U/L (40-150); Anion Gap 8 mmol/L (10-20); BUN (Urea Nitrogen) 27 mg/dL (9.8-20.1); Bilirubin, Total 1.2 mg/dL (0.2-1.2); Calc. Creatinine Clearance 52 mL/min (70-130); Calcium 10.2 mg/dL (7.8-10.44); Carbon Dioxide 32 mmol/L (23-31); Chloride 102 mmol/L (98-107); Estimated GFR-MDRD 31; Globulin 2.2 g/dL (2.4-3.5); Magnesium 1.9 mg/dL (1.6-2.6); Protein, Total 5.2 g/dL (6.0-8.3)
[2017-05-14] MEDS: Sodium Chloride 0.65% Nasal 44 ML BOT EA NARE SCH ×3 (09:32→20:38)
[2017-05-14] MEDS: Docusate 100 MG CAP PO SCH ×2 (09:32→20:38)
[2017-05-14] MEDS: Sodium Chloride 0.9% 1,000 ML IV SCH (09:34)
[2017-05-14] MEDS: Cefepime 2 GM, Syringe 2.5 ML in Sterile Water 10 ML SLOW IVP SCH (13:33)
[2017-05-14] MEDS ORDERED: Potassium Chloride 20 MEQ TAB PO SCH ×2 (14:30→17:00)
--- NOTE | 2017-05-14 16:41 | PDOC.PN ---
- Subjective Encounter Start Date: 05/14/17 Encounter Start Time: 14:00 Patient seen and examined. No new complaints. No overnight events - Objective Resuscitation Status: Resuscitation Status FULL:Full Resuscitation MAR Reviewed: Yes Vital Signs & Weight: Vital Signs (12 hours) Temp Pulse Resp BP BP Pulse Ox 05/14/17 16:00 99.5 F 77 16 154/66 H 100 05/14/17 12:00 97.8 F 74 20 158/70 H 99 05/14/17 08:00 97.8 F 74 20 164/78 H 97 Weight Admit Weight 224 lb 13.944 oz Weight 224 lb 13.944 oz I&O: 05/13/17 05/14/17 05/15/17 06:59 06:59 06:59 Intake Total 250 3175 Balance 250 3175 Result Diagrams: 05/14/17 06:00 05/14/17 06:00 Phys Exam - Physical Examination Constitutional: NAD Respiratory: no wheezing, no rales, no rhonchi Cardiovascular: RRR, no rub Gastrointestinal: soft, non-tender, no distention, positive bowel sounds Musculoskeletal: edema present (1 +) Neurological: non-focal, moves all 4 limbs Dx/Plan - Plan IMPRESSION: 1. Neutropenic fever. 2. Acute kidney injury. improving 3. Hypercalcemia, probably secondary to malignancy in the setting of dehydration. improving 4. Pancytopenia secondary to chemotherapy. 5. Hypertension. 6. Hyperlipidemia. 7. HypoKalemia/Hypomagnesemia PLAN: * Lasix on hold * DC IVF * Cont Vancomycin and Cefepime * AM labs * Oncology following * Replace Potassium * Resume selected home meds including Coreg Review of Systems - Review of Systems Respiratory: negative: Cough, Dry, Shortness of Breath, Hemoptysis, SOB with Excertion, Pleuritic Pain, Sputum, Wheezing Cardiovascular: negative: Chest Pain, Palpitations, Orthopnea, Paroxysmal Noc. Dyspnea, Edema, Light Headedness, Other Gastrointestinal: negative: Nausea, Vomiting, Abdominal Pain, Diarrhea, Constipation, Melena, Hematochezia, Other Genitourinary: negative: Dysuria, Frequency, Incontinence, Hematuria, Retention , Other - Medications/Allergies Allergies/Adverse Reactions: Allergies Allergy/AdvReac Type Severity Reaction Status Date / Time adhesive Allergy Rash Verified 05/13/17 01:12 Medications: Current Medications Acetaminophen (Tylenol) 650 mg PO Q4H PRN PRN Reason: Headache/Fever or Pain Last Admin: 05/13/17 13:36 Dose: 650 mg Al Hydroxide/Mg Hydroxide (Maalox) 30 ml PO Q6H PRN PRN Reason: Heartburn or Indigestion Bisacodyl (Dulcolax) 10 mg [place] Q24H PRN PRN Reason: Constipation Calcium Carbonate (Tums) 1,000 mg PO Q4H PRN PRN Reason: Heartburn or Indigestion Docusate Sodium (Colace) 100 mg PO BID [facility] Last Admin: 05/14/17 09:32 Dose: 100 mg Guaifenesin (Robitussin Sf) 200 mg PO Q4H PRN PRN Reason: Cough Vancomycin HCl 1 gm/ Device 200 mls @ 200 mls/hr IVPB 2200 JULIA Cefepime HCl 2 gm/ Syringe 2.5 (ml/ Sterile Water) 12.5 mls @ 150 mls/hr SLOW IVP 0200,1400 [facility] Last Admin: 05/14/17 13:33 Dose: 12.5 mls Labetalol HCl (Normodyne) 10 mg SLOW IVP Q4H PRN PRN Reason: Systolic BP > 180 Miscellaneous Medication (Pharmacy To Dose) 1 each IVPB ONE PRN PRN Reason: Pharmacy to dose Stop: 05/23/17 06:11 Ondansetron HCl (Zofran Odt) 4 mg PO Q6H PRN PRN Reason: Nausea/Vomiting Polyethylene Glycol (Miralax) 17 gm PO DAILYPRN PRN PRN Reason: Constipation Potassium Chloride (K-Dur) 20 meq PO BID-[facility] Senna (Senokot) 2 tab PO HSPRN PRN PRN Reason: Constipation Sodium Chloride ([place] Nasal [place] 0.65%) 0 ml EA NARE TID [facility] Last Admin: 05/14/17 15:15 Dose: 1 spray
[2017-05-14] MEDS: Carvedilol 25 MG TAB PO SCH (20:38)
[2017-05-14] MEDS: Melatonin 3 MG TAB PO SCH (21:09)
[2017-05-14 21:43] LABS: Vancomycin, Trough 3.8 ug/mL
[2017-05-14] MEDS ORDERED: Vancomycin HCl 1 GM in Premix Bag 1 BAG IVPB SCH (22:00)
[2017-05-14] MEDS: Vancomycin HCl 1 GM in Premix Bag 1 BAG IVPB SCH (22:51)
[2017-05-15] MEDS: Cefepime 2 GM, Syringe 2.5 ML in Sterile Water 10 ML SLOW IVP SCH ×2 (02:07→14:16)
[2017-05-15 04:58] LABS: Anion Gap 11 mmol/L (10-20); BUN (Urea Nitrogen) 23 mg/dL (9.8-20.1); BUN/Creatinine Ratio 14.84; Calc. Creatinine Clearance 55 mL/min (70-130); Calcium 9.7 mg/dL (7.8-10.44); Carbon Dioxide 28 mmol/L (23-31); Chloride 102 mmol/L (98-107); Estimated GFR-MDRD 33; Magnesium 1.6 mg/dL (1.6-2.6); Phosphorus 2.3 mg/dL (2.3-4.7)
[2017-05-15 05:05] LABS: Hematocrit 24.3 % (36.0-47.0); Mean Platelet Volume 10.1 fL (7.4-10.4); Red Blood Cell (RBC) Count 2.63 mill/uL (4.20-5.40); White Blood Cell (WBC) Count Less than 0.1 thou/uL (4.8-10.8)
[2017-05-15] MEDS ORDERED: Magnesium 2 GM/NS 0.9% 50 ML 2 GM in Premix Bag 1 BAG IVPB SCH (08:00)
[2017-05-15] MEDS: Allopurinol 100 MG TAB PO SCH (08:42)
[2017-05-15] MEDS: Multivit, Therapeutic 1 TAB PO SCH (08:43)
[2017-05-15] MEDS: Docusate 100 MG CAP PO SCH ×2 (08:44→20:55)
[2017-05-15] MEDS: Famotidine 20 MG TAB PO SCH (08:44)
[2017-05-15] MEDS: Carvedilol 25 MG TAB PO SCH ×2 (08:49→20:55)
[2017-05-15] MEDS: Potassium Chloride 20 MEQ TAB PO SCH ×3 (08:50→17:06)
[2017-05-15] MEDS: Sodium Chloride 0.65% Nasal 44 ML BOT EA NARE SCH ×3 (08:54→20:56)
[2017-05-15] MEDS ORDERED: valACYclovir 500 MG TAB PO SCH (09:00)
--- NOTE | 2017-05-15 14:02 | PDOC.PN ---
- Subjective Encounter Start Date: 05/15/17 Encounter Start Time: 14:00 Patient seen and examined. No new complaints. No overnight events - Objective Resuscitation Status: Resuscitation Status FULL:Full Resuscitation MAR Reviewed: Yes Vital Signs & Weight: Vital Signs (12 hours) Temp Pulse Resp BP BP Pulse Ox 05/15/17 12:00 98.8 F 65 16 119/65 99 05/15/17 08:00 99.1 F 78 18 05/15/17 07:35 99.1 F 78 18 165/73 H 96 05/15/17 04:00 99.8 F H 77 16 110/53 L 97 05/15/17 02:39 97 Weight Admit Weight 224 lb 13.944 oz Weight 224 lb 13.944 oz I&O: 05/14/17 05/15/17 05/16/17 06:59 06:59 06:59 Intake Total 3175 805 Balance 3175 805 Result Diagrams: 05/15/17 03:45 05/15/17 03:45 Phys Exam - Physical Examination Constitutional: NAD Respiratory: no wheezing, no rhonchi Cardiovascular: RRR, no rub Gastrointestinal: soft, non-tender, positive bowel sounds Musculoskeletal: edema present Neurological: non-focal, moves all 4 limbs Dx/Plan - Plan IMPRESSION: 1. Neutropenic fever. on Atbx 2. Acute kidney injury. improving 3. Hypercalcemia, probably secondary to malignancy in the setting of dehydration. resolved. 4. Pancytopenia secondary to chemotherapy. 5. Hypertension. 6. Hyperlipidemia. 7. Hypokalemia/Hypomagnesemia. PLAN: * 2 gm Mag x 1 * Lasix on hold * Cont Vancomycin and Cefepime * AM labs * Oncology following * Cont current home meds as below * Platelet transfusion per Oncology Review of Systems - Review of Systems Respiratory: negative: Cough, Dry, Shortness of Breath, Hemoptysis, SOB with Excertion, Pleuritic Pain, Sputum, Wheezing Cardiovascular: negative: Chest Pain, Palpitations, Orthopnea, Paroxysmal Noc. Dyspnea, Edema, Light Headedness, Other Gastrointestinal: negative: Nausea, Vomiting, Abdominal Pain, Diarrhea, Constipation, Melena, Hematochezia, Other - Medications/Allergies Allergies/Adverse Reactions: Allergies Allergy/AdvReac Type Severity Reaction Status Date / Time adhesive Allergy Rash Verified 05/13/17 01:12 Medications: Current Medications Acetaminophen (Tylenol) 650 mg PO Q4H PRN PRN Reason: Headache/Fever or Pain Last Admin: 05/13/17 13:36 Dose: 650 mg Al Hydroxide/Mg Hydroxide (Maalox) 30 ml PO Q6H PRN PRN Reason: Heartburn or Indigestion Allopurinol (Zyloprim) 100 mg PO DAILY [facility] Last Admin: 05/15/17 08:42 Dose: 100 mg Bisacodyl (Dulcolax) 10 mg VT Q24H PRN PRN Reason: Constipation Calcium Carbonate (Tums) 1,000 mg PO Q4H PRN PRN Reason: Heartburn or Indigestion Carvedilol (Coreg) 25 mg PO BID [facility] Last Admin: 05/15/17 08:49 Dose: 25 mg Cholecalciferol (Vitamin D3) 1,000 units PO DAILY [facility] Last Admin: 05/15/17 08:42 Dose: 1,000 units Docusate Sodium (Colace) 100 mg PO BID [facility] Last Admin: 05/15/17 08:44 Dose: 100 mg Famotidine (Pepcid) 20 mg PO QAM [facility] Last Admin: 05/15/17 08:44 Dose: Not Given Guaifenesin (Robitussin Sf) 200 mg PO Q4H PRN PRN Reason: Cough Cefepime HCl 2 gm/ Syringe 2.5 (ml/ Sterile Water) 12.5 mls @ 150 mls/hr SLOW IVP 0200,1400 [facility] Last Admin: 05/15/17 02:07 Dose: 12.5 mls Vancomycin HCl 1 gm/ Device 200 mls @ 200 mls/hr IVPB 2300 [facility] Last Admin: 05/14/17 22:51 Dose: 200 mls Labetalol HCl (Normodyne) 10 mg SLOW IVP Q4H PRN PRN Reason: Systolic BP > 180 Melatonin (Melatonin) 3 mg PO HS [facility] Last Admin: 05/14/17 21:09 Dose: 3 mg Miscellaneous Medication (Pharmacy To Dose) 1 each IVPB ONE PRN PRN Reason: Pharmacy to dose Stop: 05/23/17 06:11 Multivitamins (Theragran) 1 tab PO DAILY [facility] Last Admin: 05/15/17 08:43 Dose: 1 tab Ondansetron HCl (Zofran Odt) 4 mg PO Q6H PRN PRN Reason: Nausea/Vomiting Polyethylene Glycol (Miralax) 17 gm PO DAILYPRN PRN PRN Reason: Constipation Potassium Chloride (K-Dur) 20 meq PO TID-WM [facility] Last Admin: 05/15/17 08:50 Dose: 20 meq Senna (Senokot) 2 tab PO HSPRN PRN PRN Reason: Constipation Sodium Chloride ([place] Nasal [place] 0.65%) 0 ml EA NARE TID [facility] Last Admin: 05/15/17 08:54 Dose: 1 spray Sodium Chloride (Flush - Normal Saline) 10 ml IVF Q12HR [facility] Last Admin: 05/15/17 08:54 Dose: 10 ml Sodium Chloride (Flush - Normal Saline) 10 ml IVF PRN PRN PRN Reason: Saline Flush Valacyclovir HCl (Valtrex) 500 mg PO Q2D@0900 [facility] Last Admin: 05/15/17 08:43 Dose: 500 mg
[2017-05-15] MEDS: Melatonin 3 MG TAB PO SCH (20:56)
[2017-05-15] MEDS: Vancomycin HCl 1 GM in Premix Bag 1 BAG IVPB SCH (22:51)
[2017-05-16] MEDS: Cefepime 2 GM, Syringe 2.5 ML in Sterile Water 10 ML SLOW IVP SCH (02:13)
[2017-05-16] MEDS: Acetaminophen 325 MG TAB PO PRN (04:32)
[2017-05-16 06:18] LABS: Hematocrit 23.4 % (36.0-47.0); Mean Platelet Volume 9.9 fL (7.4-10.4); Red Blood Cell (RBC) Count 2.56 mill/uL (4.20-5.40); White Blood Cell (WBC) Count Less than 0.1 thou/uL (4.8-10.8)
[2017-05-16 06:28] LABS: Anion Gap 11 mmol/L (10-20); BUN (Urea Nitrogen) 21 mg/dL (9.8-20.1); BUN/Creatinine Ratio 15.11; Calc. Creatinine Clearance 62 mL/min (70-130); Calcium 9.7 mg/dL (7.8-10.44); Carbon Dioxide 27 mmol/L (23-31); Chloride 104 mmol/L (98-107); Estimated GFR-MDRD 38; Magnesium 1.8 mg/dL (1.6-2.6); Phosphorus 2.2 mg/dL (2.3-4.7)
[2017-05-16] MEDS: Potassium Chloride 20 MEQ TAB PO SCH ×2 (08:39→14:03)
[2017-05-16] MEDS: Allopurinol 100 MG TAB PO SCH (08:39)
[2017-05-16] MEDS: Famotidine 20 MG TAB PO SCH (08:39)
[2017-05-16] MEDS: Docusate 100 MG CAP PO SCH (08:39)
[2017-05-16] MEDS: Multivit, Therapeutic 1 TAB PO SCH (08:39)
[2017-05-16] MEDS: Carvedilol 25 MG TAB PO SCH (08:40)
[2017-05-16] MEDS: Sodium Chloride 0.65% Nasal 44 ML BOT EA NARE SCH (08:40)
[2017-05-16] MEDS ORDERED: Acetaminophen 500 MG TAB PO SCH (09:00)
--- NOTE | 2017-05-16 10:48 | DIS ---
DATE OF ADMISISON: 05/13/2017 DATE OF DISCHARGE: 05/16/2017 DISCHARGE DISPOSITION: Home. FOLLOWUP: Follow up with primary care physician, Dr. Prado in one week. The patient was also ad vised to follow up with Dr. Rand in 1 week. ALLERGIES: Patient is allergic to ADHESIVES. DISCHARGE MEDICATIONS: Same as admission medication. Allopurinol 100 mg daily, carvedilol 25 mg b. i.d., vitamin D3 1000 units daily, famotidine 20 mg daily, Lasix 40 mg daily, Levaquin 500 mg daily to be restarted after completion of 750 mg daily. Patient already picked up the prescription that w as provided by Dr. Combs. Losartan 50 mg daily, melatonin 3 mg at bedtime, multivitamin 1 tablet daily, Zofran 8 mg at bedtime, potassium chloride 20 mEq daily, pravastatin 40 mg daily, Coenzyme Q1 0 100 mg b.i.d., vitamin B complex 1 capsule daily, Valtrex 500 mg every other day. The patient was seen and examined on the day of discharge, denies any new complaints. No fevers or chills reported. Her last temperature was 97.6. 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 She was recently discharged from [facility]. She had a fever of 102 degrees for which she presented to [facility] emergency room. Please refer to the history and physical dated 05/13/2017 for further details. The patient was admitted to the hospital with the diagnosis of neutropenic fever. She was placed on vancomycin and cefepime. Oncology was also following the patient. She was also in acute kidney in jury that improved with IV hydration. WBC count remained less than 0.1. She received platelet kirby sfusion for platelet of 5000 on admission. On the day of discharge, the platelets dropped to 12,000 for which she will receive another unit of platelet. She also received 2 units of PRBC for hemoglo bin of 6.6. On the day of discharge, her hemoglobin is 7.7. She will continue Levaquin 750 mg josue y for now and will change back to her Levaquin 500 mg daily. She has been cleared by Oncology for d ischarge. FINAL DIAGNOSES: 1. Neutropenic fever. Cultures remained negative. 2. Acute kidney injury, probably secondary to diuretics. Lasix was held. Repeat labs after a week is recommended. 3. Hyperkalemia secondary to dehydration, resolved. 4. Pancytopenia secondary to chemotherapy. Status post 2 units of platelets and 2 units of PRBC th is admission. 5. Hypertension. 6. Hyperlipidemia. 7. Electrolyte imbalance. The patient had hypokalemia and hypomagnesemia, which were replaced. He r magnesium was 1.1. Lowest potassium was 3.0. 8. Mild protein calorie malnutrition. 9. Abnormal liver function tests of unclear etiology. 10. Hypophosphatemia. Repeat labs as outpatient is recommended. 11. Chronic kidney disease stage 2. Plan of care was discussed with the patient. She stated understanding.
[2017-05-16] MEDS ORDERED: K-Phos Neutral 250 MG TAB PO SCH (11:00)
[2017-05-16 15:03] VITALS: BP 146/69; TEMP 96.1
== END 2017-05-16 15:06 | disposition home or self-care (01) | DRG 809 ==
LOC: ERS 18:23 → ONC 21:53 → OBSVTOIN 05-13 00:27 → ONC 05-13 13:50
PROVIDERS: ADMIT Internal Medicine; ATTEND Internal Medicine
PROC: 30233R1 Transfusion of Nonautologous Platelets into Peripheral Vein, Percutaneous Approach (ICD-10-PCS; principal; 2017-05-13)
PROC: 30233N1 Transfusion of Nonautologous Red Blood Cells into Peripheral Vein, Percutaneous Approach (ICD-10-PCS; 2017-05-13)
DX: D70.9 Neutropenia, unspecified (principal); N17.9 Acute kidney failure, unspecified; E44.1 Mild protein-calorie malnutrition; C83.30 Diffuse large B-cell lymphoma, unspecified site; Z68.41 Body mass index [BMI] 40.0-44.9, adult; D61.810 Antineoplastic chemotherapy induced pancytopenia; R50.81 Fever presenting with conditions classified elsewhere; D46.Z Other myelodysplastic syndromes; T50.2X5A Adverse effect of carbonic-anhydrase inhibitors, benzothiadiazides and other diuretics, initial encounter; T45.1X5A Adverse effect of antineoplastic and immunosuppressive drugs, initial encounter; E78.5 Hyperlipidemia, unspecified; E87.6 Hypokalemia; E83.42 Hypomagnesemia; E83.39 Other disorders of phosphorus metabolism; I12.9 Hypertensive chronic kidney disease with stage 1 through stage 4 chronic kidney disease, or unspecified chronic kidney disease; N18.2 Chronic kidney disease, stage 2 (mild); E66.01 Morbid (severe) obesity due to excess calories; E83.52 Hypercalcemia
CPT/HCPCS: 36415; 36430; 71010; 80053; 80069; 80202; 81003; 81015; 82248; 82550; 83615; 83735; 84100; 84550; 85007; 85025; 85027; 85060; 85610; 85730; 86850; 86900; 86901; 87040; 87086; 96365; A4216; J0692; J3370; J3475; J7050; P9016; P9035

== ENCOUNTER 2017-06-11 07:55 | Day surgery (SDC) | payer MEDICARE, BC ==
[2017-06-11] MEDS ORDERED: Furosemide 40 MG/4 ML VIAL SLOW IVP SCH (08:15)
[2017-06-11] MEDS: diphenhydrAMINE 25 MG CAP PO SCH ×2 (08:16→08:27)
[2017-06-11] MEDS: Acetaminophen 500 MG TAB PO SCH ×2 (08:16→08:27)
[2017-06-11] MEDS ORDERED: Sodium Chloride 0.9% 20 ML ONE (08:28)
[2017-06-11 16:29] VITALS: BP 136/63; TEMP 98.4
[2017-06-11 16:42] LABS: Hematocrit 26.4 % (36.0-47.0); Mean Platelet Volume 8.4 fL (7.4-10.4); Red Blood Cell (RBC) Count 2.97 mill/uL (4.20-5.40); White Blood Cell (WBC) Count 1.9 thou/uL (4.8-10.8)
[2017-06-11 18:42] LABS: Anisocytosis SLIGHT = 6-15 cells (100X) (0-5/hpf); Band 9 % (5-11); Neutrophil 50 % (42-75); Nucleated RBC 1 % (0); Polychromasia SLIGHT = 2-3 cells (100X) (0-2/hpf); Reactive Lymphocytes 4 % (0-10); Vacuoles SLIGHT
== END 2017-06-11 16:15 | disposition home or self-care (01) ==
LOC: ONC/OP 07:55
PROVIDERS: ATTEND Nurse Practitioner Acute Care
PROC: 30233N1 Transfusion of Nonautologous Red Blood Cells into Peripheral Vein, Percutaneous Approach (ICD-10-PCS; principal; 2017-06-11)
DX: D46.9 Myelodysplastic syndrome, unspecified (principal); D69.59 Other secondary thrombocytopenia; C82.90 Follicular lymphoma, unspecified, unspecified site; I10 Essential (primary) hypertension; E66.01 Morbid (severe) obesity due to excess calories; Z68.41 Body mass index [BMI] 40.0-44.9, adult; Z79.2 Long term (current) use of antibiotics; Z79.899 Other long term (current) drug therapy; Z91.048 Other nonmedicinal substance allergy status; Z98.51 Tubal ligation status; Z95.828 Presence of other vascular implants and grafts; Z90.49 Acquired absence of other specified parts of digestive tract; Z98.890 Other specified postprocedural states; Z87.891 Personal history of nicotine dependence
CPT/HCPCS: 36430; 85025; 86850; 86900; 86901; 96374; A4216; J1642; J1940; P9016

== ENCOUNTER 2017-06-26 08:59 | Day surgery (SDC) | payer MEDICARE, BC ==
[2017-06-26] MEDS ORDERED: Sodium Chloride 0.9% 20 ML ONE (09:14)
[2017-06-26] MEDS ORDERED: Acetaminophen 500 MG TAB PO SCH (09:15)
[2017-06-26] MEDS ORDERED: diphenhydrAMINE 25 MG CAP PO SCH (09:15)
[2017-06-26 13:35] VITALS: BP 114/53; TEMP 98
[2017-06-26 17:16] LABS: Hematocrit 26.9 % (36.0-47.0); Mean Platelet Volume 8.4 fL (7.4-10.4); Red Blood Cell (RBC) Count 2.97 mill/uL (4.20-5.40)
[2017-06-26 19:02] LABS: Anisocytosis SLIGHT = 6-15 cells (100X) (0-5/hpf); Band 13 % (5-11); Neutrophil 48 % (42-75); Ovalocytes SLIGHT = 2-5 cells (100X) (0-1/hpf); Polychromasia SLIGHT = 2-3 cells (100X) (0-2/hpf); Reactive Lymphocytes 8 % (0-10)
== END 2017-06-26 15:57 | disposition home or self-care (01) ==
LOC: ONC/OP 08:59
PROVIDERS: ATTEND Nurse Practitioner Acute Care
PROC: 30233N1 Transfusion of Nonautologous Red Blood Cells into Peripheral Vein, Percutaneous Approach (ICD-10-PCS; principal; 2017-06-26)
DX: D64.9 Anemia, unspecified (principal); D69.59 Other secondary thrombocytopenia
CPT/HCPCS: 36430; 85025; 86850; 86900; 86901; A4216; J1642; P9016

== ENCOUNTER 2017-07-10 10:45 | Day surgery (SDC) | payer MEDICARE, BC ==
[2017-07-10] MEDS ORDERED: Acetaminophen 500 MG TAB PO SCH (11:15)
[2017-07-10] MEDS ORDERED: diphenhydrAMINE 25 MG CAP PO SCH (11:15)
[2017-07-10] MEDS ORDERED: Sodium Chloride 0.9% 20 ML ONE (14:10)
[2017-07-10 18:08] VITALS: BP 120/58; TEMP 97.6
[2017-07-10 20:30] LABS: Hemoglobin 9.9 g/dL (12.0-16.0); Mean Corpuscular HGB CONC 32.9 g/dL (32.0-36.0); Mean Corpuscular Hemoglobin 29.7 pg (27.0-31.0); Mean Corpuscular Volume 90.2 fl (81.0-99.0); Mean Platelet Volume 10.2 fL (7.4-10.4); Platelet Count 24 thou/uL (130-400); RBC Distribution Width 16.2 % (11.5-14.5); Red Blood Cell (RBC) Count 3.35 mill/uL (4.20-5.40); White Blood Cell (WBC) Count 0.9 thou/uL (4.8-10.8)
[2017-07-10 21:14] LABS: Band 12 % (5-11); Lymphocytes 8 % (21-51); MDiff Complete? YES; Monocytes 20 % (0-10); Neutrophil 56 % (42-75); PLT Morphology Comment Appears Decreased; RBC Morphology Normal; Reactive Lymphocytes 4 % (0-10)
== END 2017-07-10 18:05 | disposition home or self-care (01) ==
LOC: ONC/OP 10:45
PROVIDERS: ATTEND Internal Medicine Medical Oncology
PROC: 30233N1 Transfusion of Nonautologous Red Blood Cells into Peripheral Vein, Percutaneous Approach (ICD-10-PCS; principal; 2017-07-10)
DX: D46.9 Myelodysplastic syndrome, unspecified (principal); D69.59 Other secondary thrombocytopenia; C82.90 Follicular lymphoma, unspecified, unspecified site; E66.01 Morbid (severe) obesity due to excess calories; I12.9 Hypertensive chronic kidney disease with stage 1 through stage 4 chronic kidney disease, or unspecified chronic kidney disease; N18.2 Chronic kidney disease, stage 2 (mild); E78.5 Hyperlipidemia, unspecified; Z68.41 Body mass index [BMI] 40.0-44.9, adult; Z79.2 Long term (current) use of antibiotics; Z79.899 Other long term (current) drug therapy; Z91.048 Other nonmedicinal substance allergy status; Z98.51 Tubal ligation status; Z95.828 Presence of other vascular implants and grafts; Z90.49 Acquired absence of other specified parts of digestive tract; Z98.890 Other specified postprocedural states; Z87.891 Personal history of nicotine dependence
CPT/HCPCS: 36430; 85025; 86850; 86900; 86901; A4216; J1642; P9016

== ENCOUNTER 2017-08-05 16:09 | Outpatient (CLI) | payer MEDICARE, BC | END 2017-08-05 16:10 | disposition home or self-care (01) | LOC: BICRAD 16:09 | PROVIDERS: ATTEND Internal Medicine Medical Oncology | DX: J18.9 Pneumonia, unspecified organism (principal); J90 Pleural effusion, not elsewhere classified | CPT/HCPCS: 71046 ==

== ENCOUNTER 2017-10-13 03:30 | Inpatient (IN) | payer MEDICARE, BC ==
[2017-10-13] MEDS ORDERED: Cefepime 2 GM/10 ML SYR ONE (03:56)
[2017-10-13] MEDS ORDERED: Acetaminophen 500 MG TAB ONE (04:37)
[2017-10-13 04:48] LABS: ALT (SGPT) 53 U/L (8-55); AST (SGOT) 47 U/L (5-34); Albumin 3.3 g/dL (3.4-4.8); Alkaline Phosphatase 139 U/L (40-150); Anion Gap 14 mmol/L (10-20); BUN (Urea Nitrogen) 22 mg/dL (9.8-20.1); Bilirubin, Total 1.8 mg/dL (0.2-1.2); Calc. Creatinine Clearance 0 mL/min (70-130); Calcium 11.9 mg/dL (7.8-10.44); Carbon Dioxide 32 mmol/L (23-31); Chloride 90 mmol/L (98-107); Estimated GFR-MDRD 41; Globulin 2.1 g/dL (2.4-3.5); Glucose 131 mg/dL (80-115); Potassium 3.5 mmol/L (3.5-5.1); Protein, Total 5.4 g/dL (6.0-8.3); Sodium 132 mmol/L (136-145)
[2017-10-13 04:50] LABS: Hemoglobin 9.5 g/dL (12.0-16.0); Mean Corpuscular HGB CONC 34.7 g/dL (32.0-36.0); Mean Corpuscular Hemoglobin 32.4 pg (27.0-31.0); Mean Corpuscular Volume 93.4 fl (81.0-99.0); RBC Distribution Width 18.5 % (11.5-14.5); Red Blood Cell (RBC) Count 2.94 mill/uL (4.20-5.40); White Blood Cell (WBC) Count 0.2 thou/uL (4.8-10.8)
[2017-10-13 05:09] LABS: Anisocytosis SLIGHT = 6-15 cells (100X) (0-5/hpf); MDiff Complete? YES; Mean Platelet Volume 9.1 fL (7.4-10.4); PLT Morphology Comment Appears Decreased; Platelet Count 40 thou/uL (130-400); Reflex for Review?? YES
[2017-10-13 05:38] LABS: Bilirubin Negative (Negative); Blood, Urine Large (Negative); Clarity Hazy (Clear); Glucose, Urine (Dipstick) Negative (Negative); Leukocyte Negative (Negative); Nitrite Negative (Negative); Protein, Urine (Dipstick) 100 mg/dL (Neg-Trace); Urobilinogen 0.2 mg/dL (0.2-1.0)
[2017-10-13 05:39] LABS: Bacteria/HPF None Seen HPF (None Seen); Crystals/HPF None Seen HPF (Negative); Hyaline Casts/LPF NONE SEEN LPF (0-3 Hyaline); Renal Epithelial 0-3 HPF (0-3); Transitional Epithelial 0-3 HPF (0-3); WBC/HPF 0-3 HPF (0-3)
[2017-10-13 05:40] LABS: Other Microscopic Description Less than 2 mL rec'd
--- NOTE | 2017-10-13 07:52 | RAD ---
PORTABLE CHEST: Date: 10/13/17 HISTORY: Fever. COMPARISON: 05/12/17. FINDINGS: No evidence of infiltrate. No evidence of vascular congestion or edema. Heart size upper normal and s table. MediPort catheter appears in adequate position with tip overlying the SVC. IMPRESSION: No acute lung infiltrate. POS: [facility]
[2017-10-13 08:37] LABS: Lactic Acid 2.7 mmol/L (0.5-2.2)
[2017-10-13] MEDS ORDERED: Bisacodyl 5 MG TAB PO PRN (09:09)
[2017-10-13] MEDS ORDERED: Acetaminophen 650 MG Suppository PR PRN (09:09)
[2017-10-13] MEDS ORDERED: Vancomycin HCl 1 GM in Premix Bag 1 BAG IVPB SCH (09:15)
[2017-10-13] MEDS ORDERED: Digoxin 0.5 MG/2 ML AMP SLOW IVP SCH ×2 (09:30→18:00)
--- NOTE | 2017-10-13 10:12 | ULT ---
PRELIMINARY REPORT/[facility]/EMERGENTY AFTER-HOURS PROCEDURE EXAM: US Duplex Bilateral Lower Extremity Veins CLINICAL HISTORY: 72 years old, female; Pain and signs and symptoms; Edema, localized; Lower extremity, bilateral; Leg, upper; Additional info: Chemo patient, pitting edema ble TECHNIQUE: Real-time duplex ultrasound scan of the bilateral lower extremity veins integrating B-mode two dimens ional vascular structure, Doppler spectral analysis, color flow Doppler imaging and compression. COMPARISON: No relevant prior studies available. FINDINGS: Right deep veins: Unremarkable. No DVT in the right common femoral, femoral, proximal deep femoral or popliteal veins. The veins demonstrate normal color flow, are normally compressible, with normal pha sic flow and/or augmentation response. Right superficial veins: Unremarkable. No thrombus in the visualized right great saphenous vein. Left deep veins: Unremarkable. No DVT in the left common femoral, femoral, proximal deep femoral or p opliteal veins. The veins demonstrate normal color flow, are normally compressible, with normal phasic flow and/or augmentation response. Left superficial veins: Unremarkable. No thrombus in the visualized left great saphenous vein. Soft tissues: No acute findings. No popliteal cyst. IMPRESSION: Normal bilateral lower extremity duplex venous ultrasound. Thank you for allowing us to participate in the care of your patient. Dictated and Authenticated by: Antwan Johnson MD 10/13/2017 5:56 AM Central Time ([place] & [place]) FINAL REPORT BILATERAL LOWER EXTREMITY VENOUS ULTRASOUND WITH DOPPLER: History: Pain. Edema. Comparison: None. Technique: Grayscale, color flow, doppler imaging and spectral waveform analysis performed in the lef t and right lower extremity deep venous system. FINDINGS: This report is in agreement with the preliminary report by [facility]. No evidence of deep vein thrombus in either lower extremity. POS: [facility]
--- NOTE | 2017-10-13 13:31 | HP ---
PRIMARY CARE PROVIDER: [facility]. ONCOLOGIST: Rose Marie Prado M.D. CHIEF COMPLAINT: Fever. HISTORY OF PRESENT ILLNESS: Ms. Cutler is a pleasant 72-year-old lady who was seen at [facility] on 09/12/2017. She has a history of lymphoma and receives chemotherapy at [facility]. Her next chemotherapy is tomorrow. She reports having diarrhea a week ago. She also reports being hospitalized at [facility] 4-6 weeks ago. She appears to have been diagnosed with Clostridium difficile colitis, since she was discharged home on enteral vancomycin. She also reports that around that hospitalization, she was found to have atrial fibrillation, paroxysmal. She reports that there was discussion around blood thinners. She was initially started on aspirin and that was subsequently stopped. Yesterday, she felt warm. She reports that she has a chronic ulcer over the back of her right leg. Her checked her temperature and found that it was 102.5 degrees Fahrenheit. She therefore came to the emergency room. She denies any cough. She denies any diarrhea. She denies any nausea or vomiting. She has no other complaints. REVIEW OF SYSTEMS: The following complete review of systems was negative, unless otherwise mentioned in the HPI or below: Constitutional: Weight loss or gain, ability to conduct usual activities. Skin: Rash, itching. Eyes: Double vision, pain. ENT/Mouth: Nose bleeding, neck stiffness, pain, tenderness. Cardiovascular: Palpitations, dyspnea on exertion, orthopnea. Respiratory: Shortness of breath, wheezing, cough, hemoptysis, fever or night sweats. Gastrointestinal: Poor appetite, abdominal pain, heartburn, nausea, vomiting, constipation, or diarrhea. Genitourinary: Urgency, frequency, dysuria, nocturia. Musculoskeletal: Pain, swelling. Neurologic/Psychiatric: Anxiety, depression. Allergy/Immunologic: Skin rash, bleeding tendency. PAST MEDICAL HISTORY: Significant for follicular lymphoma, currently on chemotherapy, myelodysplastic syndrome, hypertension, morbid obesity, paroxysmal atrial fibrillation and suspected Clostridium difficile infection. PAST SURGICAL HISTORY: Significant for hernia repair, MediPort placement, cholecystectomy, and bilateral tubal ligation. FAMILY HISTORY: No family history of lymphoma. SOCIAL HISTORY: No history of tobacco use, alcohol use or recreational drug use. ALLERGIES: The patient is allergic to ADHESIVE. CURRENT MEDICATIONS: Include allopurinol 100 mg daily, Coreg 25 mg 2 times a day, Coenzyme Q10 100 mg 2 times a day, famotidine 20 mg daily, furosemide 20 mg 2 times a day, potassium chloride 20 mEq daily, vitamin D3 1000 units daily, vitamin B12 1000 mcg daily, melatonin 3 mg daily, Zofran 8 mg daily, pravastatin 40 mg daily, valacyclovir 500 mg every other day, levofloxacin 500 mg daily, vancomycin 125 mg 2 times a day, vitamin D2 50,000 units every week, vitamin B complex 1 capsule daily. PHYSICAL EXAMINATION: GENERAL: On examination, Ms. Cutler is awake and alert, not in acute distress. VITAL SIGNS: She is currently afebrile although her T-max in the emergency room was 102.4 degrees Fahrenheit. Pulse is 125. She is breathing at rate of 14 and saturating 99% on room air. Blood pressure is 97/60. EYES: No scleral icterus. No conjunctival pallor. ENT: Moist mucosal membranes, no oropharyngeal erythema or exudates. NECK: Supple, nontender, normal range of movement, trachea is midline. RESPIRATORY: Accessory muscles of breathing are not active. Chest wall movements are symmetric bilaterally. LUNGS: Clear to auscultation without wheeze, rhonchi or crepitations. CARDIOVASCULAR: S1 and S2 are heard, tachycardic and irregular. LUNGS: Peripheral pulses palpable. No carotid bruit, no pericardial rub. ABDOMEN: Soft, nontender, bowel sounds are heard, no hepatomegaly, no splenomegaly. NEUROLOGIC: Cranial nerves II-XII intact. Deep tendon reflexes are 2+. MUSCULOSKELETAL: Power is 5/5 in all 4 extremities. SKIN: She has dressing over right leg wound. Bilateral lower extremity edema. LYMPHATIC: No cervical lymphadenopathy. PSYCHIATRIC: Normal mood, normal affect, patient is oriented to person, place, and time. IMAGING DATA AND LABORATORY DATA: Ms. Cutler's labs and investigations were reviewed. I reviewed her electrocardiogram, which shows atrial fibrillation with rapid ventricular response. I also reviewed her chest x-ray, which does not show any pulmonary infiltrates. Bilateral leg Dopplers did not show any DVT. She has white count of 200, hemoglobin 9.5, and platelet count 40,000. Sodium 132, potassium 3.5, elevated blood urea nitrogen of 22, elevated creatinine of 1.29, elevated lactic acid of 2.7, elevated total bilirubin of 1.8 , elevated AST of 47, normal ALT, normal alkaline phosphatase, decreased albumin of 3.3 and urinalysis that is positive for protein and blood, negative for nitrite and leukocyte esterase. ASSESSMENT AND PLAN: Ms. Cutler is a pleasant 72-year-old lady who was seen at [facility] on 10/13/2017. Her problem list includes: 1. Sepsis: Ms. Cutler is presenting with sepsis. The clear source of infection is not known at this time. She will be admitted to the hospital and treated with broad spectrum antibiotics. She is already been started on vancomycin and cefepime, which I will continue. 2. Febrile neutropenia: Antibiotics as above, await cultures. If she develops diarrhea, check stool for C. diff. 3. Lymphoma: Consult Oncology Service for opinion and help with management. 4. Atrial fibrillation with rapid ventricular response: Her blood pressure is low. At this time, I will give her a dose of digoxin. We will also consult Cardiology Service. She will be monitored on telemetry. 5. Hypertension: Monitor vital signs, titrate antihypertensives as needed. 6. Dyslipidemia: Continue statin. Many thanks for allowing me to participate in your patient's care. Please feel free to contact me with any questions or concerns. LEVEL OF RISK: High. LEVEL OF COMPLEXITY: High. MTDD
--- NOTE | 2017-10-13 17:06 | CON ---
DATE OF CONSULTATION: 10/13/2017 REASON FOR CONSULTATION: Lymphoma. HISTORY OF PRESENT ILLNESS: Ms. Cutler is a 79-year-old female who presented to the emergen cy room yesterday with temperature of 102. The patient has a history of lymphoma. She was diagnosed with diffuse large B cell lymphoma in 01/2008. She underwent treatment with R-CHOP and was in remis tory until 02/2016 when she had relapse with follicular lymphoma. She received bendamustine and Gretchen juani. She then was diagnosed with myelodysplastic syndrome secondary to pancytopenia in 02/2017. She is an [facility] patient. She was recently hospitalized at the facility for approximately 1 month. She had C. difficile infection during that admission. Most recently, she began a treatment with CD 20 monoclonal antibody similar to Rituxan and oral Revlimid. This was started last Thursday and she presented to our emergency room yesterday with neutropenic fever. She denies any headache, upper re spiratory symptoms, no chest pain or shortness of breath. No abdominal pain, diarrhea, constipation or abdominal pain. No bleeding. On admission, her white count was 200, hemoglobin was 9.5 and plate let count was 40,000. Her calcium was 11.9. She has chronic hypercalcemia. PAST MEDICAL HISTORY: 1. Diffuse large B cell lymphoma in 2007. 2. Follicular lymphoma in 2015. 3. Myelodysplastic syndrome in 2016. 4. Chronic kidney disease. 5. Hypertension. 6. Chronic hypercalcemia. PAST SURGICAL HISTORY: Umbilical hernia surgery, MediPort placement, cholecystectomy and tubal ligat ion. ALLERGIES: To ADHESIVES. HOME MEDICATIONS: 1. Allopurinol 100 mg daily. 2. Coreg 25 mg b.i.d. 3. CoQ10 daily. 4. Pepcid 20 daily. 5. Lasix 40 daily. 6. K-Dur 20 daily. 7. Losartan 50 mg daily. 8. Pravastatin 40 mg daily. 9. Tylenol 3 p.r.n. FAMILY HISTORY: Her father had liver cancer. SOCIAL HISTORY: , lives with her spouse. No alcohol, tobacco or illicit drug use. REVIEW OF SYSTEMS: Twelve point review of systems is negative except for noted in HPI. PHYSICAL EXAMINATION: VITAL SIGNS: Temperature is 98.4, pulse is 100, respiratory rate 14, BP is 97/60. She is 99% on tess m air. GENERAL: Well-developed, well-nourished female in no acute distress. HEENT: Normocephalic, atraumatic. Pupils are equal and reactive to light. NECK: Supple. CARDIOVASCULAR: Regular rate and rhythm. LUNGS: Clear. ABDOMEN: Obese, nontender. Bowel sounds are positive. EXTREMITIES: No clubbing, cyanosis or edema. SKIN: No rash. HEMATOLOGIC: No petechia or purpura. NEUROLOGIC: Nonfocal. PSYCHIATRIC: The patient is alert and oriented and appropriate. PERTINENT LABORATORY DATA AND IMAGING DATA: Current WBCs 0.2, hemoglobin 9.5, hematocrit 27.[address] atelet count 40,000. Sodium is 132, potassium 3.5, chloride 90, CO2 32, BUN is 22, creatinine 1.29. Lactic acid is 2.7, calcium 11.9, total bilirubin is 1.8, AST is 47, ALT is 53, alkaline phosphatase is 139. Serum total protein is 5.4, albumin 3.3, globulin 2.1. Urine is negative for bacteria. Ch est x-ray showed no acute process. Venogram was negative for DVT. IMPRESSION: 1. Follicular lymphoma on a new chemotherapy at [facility]. 2. History of myelodysplastic syndrome with chronic pancytopenia. 3. Neutropenic fever. 4. Chronic hypercalcemia. 5. Elevated liver function tests. 6. Recent Clostridium difficile infection. DISCUSSION: Patient has been afebrile since admission. She is on empiric antibiotics which will be continued. We will hold her Revlimid this evening and recheck CBC in the morning. If she remains af ebrile for 48 hours, would recommend discharging home. She was due for chemotherapy tomorrow. I hav e instructed the family to call [facility] to let them know of her admission and to reschedule her c hemo appointment. Thank you for the consult. We will follow her hospital course closely.
[2017-10-13] MEDS: Acetaminophen 325 MG TAB PO PRN (20:59)
[2017-10-13] MEDS ORDERED: Cefepime 2 GM in Sodium Chloride 0.9% 100 ML IVPB SCH (21:00)
[2017-10-13] MEDS: Digoxin 0.5 MG/2 ML AMP SLOW IVP SCH (21:05)
--- NOTE | 2017-10-13 23:34 | CON ---
DATE OF CONSULTATION: 10/13/2017 PRIMARY CARE PHYSICIAN: Dr. Dinora Rand. PRIMARY ELECTRICIAN ELEVATOR MAINTENANCE: Dr. Zenobia Wadsworth. REFERRING: Dr. Rincon. REASON FOR CARDIOLOGY CONSULTATION: Atrial fibrillation with rapid ventricular response. HISTORY OF PRESENT ILLNESS: Ms. Cutler is a 72-year-old female with significant history of lymphoma and myelodysplastic syndrome, treated at [facility], hypertension and hyperlipidemia. Patient presents to the emergency department for temperature 102.5 at home. The patient was found to have atrial fibrillation with rapid ventricular response with a heart rate around 140s. Patient was just discharged from [facility] last Thursday on 10/09/2017 for cancer treatment. According to the family report, patient was found to have atrial fibrillation during that admission. She was on the carvedilol with aspirin 81 mg; however, the patient's aspirin was discontinued due to a low blood count and low platelet counts. When patient discharged from [facility] the last Thursday, patient's heart rhythm was still continue to be atrial fibrillation with a normal heart rate per family member. Prior to this admission, patient denies any palpitation fluttering in her chest pain or discomfort in her chest, shortness of breath, dizziness, lightheadedness, or any other cardiac complaints except chronic fatigue, but patient cannot tell whether that the fatigue come from symptoms of atrial fibrillation or from cancer and treatment. Patient's last echocardiogram was done in 11/[address] Wadsworth's office, which shows the EF of 50% to 60%, mild LAD and mild mitral valve regurgitation and trace tricuspid regurgitation. Patient had a venogram done today for all bilateral lower extremity edema, which shows no DVT. She does not have any other cardiac workup studies. PAST MEDICAL HISTORY: 1. Diffuse large B cell in 01/2008. Then, myelodysplastic syndrome in 2016. Patient was being treated in the [facility]. 2. Hypertension. 3. Hyperlipidemia. 4. Chronic kidney disease stage II. PAST SURGICAL HISTORY: 1. Cholecystectomy. 2. Hernia repair. 3. Tubal ligation. 4. Right carpal tunnel repair. 5. Left shoulder lipoma removed in 2017 and the right subacromial MediPort placement in 2017. FAMILY HISTORY: The patient's father has a history of liver cancer. Patient's mother due to an [place] at age of 100 and the patient's brother has a history of diabetes, but other than the patient. There is no significant medical history of cardiovascular in her family. SOCIAL HISTORY: She is . She lives with her . She has 3 children who live well. The patient ex-smoker, quit about 10 years ago. She enjoys alcohol, one glass of wine or one bottle of beer 3 or 4 times a week. Patient denied any illicit drug abuse. ALLERGIES: She is allergic to LATEX. HOME MEDICATIONS: Melatonin 3 mg at night, vitamin B complex 1 capsule once a day, CoQ10 100 mg 1 twice a day, pravastatin 40 mg once a day, carvedilol 25 mg 1 twice a day, Levaquin 500 mg once a day, valacyclovir 500 mg every 2 days, and Zofran 8 mg 1 tablet at the bedtime, potassium 20 mEq twice a day, Pepcid 20 mg once a day, allopurinol 100 mg once a day, magnesium 133 mg 3 times a day , vitamin B12 of 1000 mg p.o. once a day, Tylenol 300/30 mg 2 tablets every 4 hours as needed p.r.n., vancomycin 125 mg twice a day, sucralfate 1 mg 3 times a day as needed p.r.n. Revlimid 15 mg once a day, Lasix 20 mg twice a day, vitamin D2 50,000 units once a day. REVIEW OF SYSTEMS: The following complete review of systems was negative, unless otherwise mentioned in the HPI or below. Constitutional: She used to have poor appetite, but lately her eating habits are getting better according to the patient's family. She complained of chronic fatigue other than that, patient has had an ability to conduct usual activities, exercise tolerance. Skin: Positive for ulcer into the left lower extremities, but negative for rash , itching. Breasts: Lump tenderness, swelling, nipple discharge. Eyes: She has complained of blurry vision in the bilateral eyes, but worse in the right eyes due to cataract, negative for vision change or double vision, tearing, blind spots, pain. HEENT: She has a chronic headache, but negative for vertigo , lightheadedness, dizziness, nasal bleeding, cold, obstruction, discharge dental difficulty, gingival bleeding, dentures, neck stiffness, pain, tenderness , mass in the thyroid or other areas. Cardiovascular: Precordial pain, substernal distress, palpitations, syncope, dyspnea on exertion, orthopnea, nocturnal dyspnea, cyanosis, heart murmur, varicosis, claudication. Positive for edema in the bilateral lower extremities. Respiratory: Shortness of breath , wheezing, stridor, cough, hemoptysis. Gastrointestinal: Appetite, dysphagia , indigestion, abdominal pain. She had a history of C. diff and she is taking vancomycin at this moment, but denies she has not had any BM since last Thursday, but denies blood in the stool. Genitourinary: Urgency, frequency, dysuria, nocturia, hematuria, polyuria, oliguria, or unusual color of urine, although patient's UA shows the patient had large amount of blood in her urine. Musculoskeletal: Pain, swelling, redness, or heat of muscle or joint limited of motion, muscular weakness, atrophy, cramps. Neurologic: Seizure conversion , paralysis, tremor, incoordination. Psychiatric: Emotional problem, anxiety, depression, previous psychiatric care, unusual perception hallucination. PHYSICAL EXAMINATION: VITAL SIGNS: The blood pressure in the floor is 97/60. However, the patient's blood pressure at the ER was 110-120/70, pulse is 120 to 140 at the ER after the digoxin IV push 0.25 mg digoxin IV push. Patient's heart rates are going down to 90s, temperature 98.4, respiratory rate 14, room 99% with room air. GENERAL: Well-developed and well-nourished without any acute distress, but she also complains of coldness. HEAD: Normocephalic, atraumatic. EYES: Extraocular muscle movements are intact. She wear glasses. ENT: Oral and nasal mucosa are moist without lesion. NECK: No JVD. Neck supple and normal range of motion. LUNGS: Clear to auscultation bilaterally. No wheezing, rales, or rhonchi noted. CARDIOVASCULAR: Irregularly irregular. There is no significant murmur, hives, thrill, bruits, or rub noted. There are 2+ pulses in bilateral dorsal pedis, posterior tibial, but 1+ in the bilateral popliteal and femoral pulses. Carotid pulse present with bruit or thrill at 2-3+ pitting edema in bilateral lower extremities. ABDOMEN: Soft, but mild tenderness. No mass noted by palpitation, nondistended. Bowel sounds are present. MUSCULOSKELETAL: She is able to move all extremities. No calf tenderness. SKIN: Warm and dry. No skin rash bruise, but she has an ulcer to the left calf. NEUROLOGIC: She is alert and oriented x4. She is lethargic, but normal affect. Nonfocal. PSYCHIATRIC: Mood and affect are normal. EKG: A 12-lead EKG was done at the ER sheath, which shows atrial fibrillation with a rapid ventricular response with a heart rate of 140. LABORATORY DATA: WBC 0.2, hemoglobin 9.5, hematocrit 27.5, platelets 40. Sodium 132, BUN 22, creatinine 1.29, glucose 131. Lactic acid 2.7, AST 47, ALT 53. UA shows a positive for urine protein and a large amount of blood in urine. IMAGING: Chest x-ray shows no acute lung infiltrate and venogram shows no DVTs. ASSESSMENT AND PLAN: 1. Atrial fibrillation with a rapid ventricular response. Patient's heart rate is stable with first dose of 0.25 mg digoxin IV push. She was giving carvedilol for atrial fibrillation at [facility] 25 mg twice a day. However , due to the patient's blood pressure, we like to continue digoxin at this moment. Once the patient's blood pressure improves, we like to resume carvedilol from the low dose. At this moment, we like to hold any anticoagulant due to low platelets and also blood in the urine. 2. Sepsis. Patient's temperature was elevated today, possible due to her neutropenic fever. Oncology Service is following this patient. 3. History of lymphoma and myelodysplastic syndrome managed by the oncology service. 4. Hypertension. Patient's blood pressures tend to be hypotensive at this moment. We like to continue to monitor and we like to adjust her blood pressure medication as appropriate. 5. Hyperlipidemia. We are going to resume the pravastatin 40 mg once a day. 6. History of Clostridium difficile. Patient was diagnosed with C. diff the last admission at the [facility] in the 09/2017. Patient is to continue to take the vancomycin 1.25 grams , which is managed by patient's PCP doctor. Thank you very much for allowing Cardiology service to participate in the care of the patient. We will follow along with the patient care team and make further recommendations as appropriate. DORITA
[2017-10-14] MEDS: Digoxin 0.5 MG/2 ML AMP SLOW IVP SCH ×2 (03:19→10:41)
[2017-10-14] MEDS: Cefepime 2 GM, Syringe 2.5 ML in Sodium Chloride 0.9% 10 ML SLOW IVP SCH (03:20)
[2017-10-14] MEDS: Vancomycin HCl 1.25 GM in Sodium Chloride 0.9% 250 ML 250 ML IVPB SCH (03:21)
[2017-10-14] MEDS: Acetaminophen 325 MG TAB PO PRN ×2 (04:59→18:02)
[2017-10-14 06:19] LABS: Hemoglobin 7.6 g/dL (12.0-16.0); Mean Corpuscular HGB CONC 34.4 g/dL (32.0-36.0); Mean Corpuscular Hemoglobin 32.4 pg (27.0-31.0); Mean Corpuscular Volume 94.3 fl (81.0-99.0); Mean Platelet Volume 9.6 fL (7.4-10.4); Platelet Count 33 thou/uL (130-400); RBC Distribution Width 18.3 % (11.5-14.5); Red Blood Cell (RBC) Count 2.35 mill/uL (4.20-5.40); White Blood Cell (WBC) Count 0.2 thou/uL (4.8-10.8)
[2017-10-14 06:22] LABS: Anion Gap 9 mmol/L (10-20); BUN (Urea Nitrogen) 21 mg/dL (9.8-20.1); Calc. Creatinine Clearance 62 mL/min (70-130); Calcium 10.6 mg/dL (7.8-10.44); Carbon Dioxide 32 mmol/L (23-31); Chloride 98 mmol/L (98-107); Estimated GFR-MDRD 45; Glucose 85 mg/dL (80-115); Sodium 136 mmol/L (136-145)
[2017-10-14 06:35] LABS: PLT Morphology Comment Appears Decreased
--- NOTE | 2017-10-14 10:57 | ADD-CON ---
ADDENDUM DATE OF CONSULTATION: 10/13/2017 INDICATION FOR CONSULTATION: A 72-year-old female with neutropenic fever, atrial fibrillation and lo ng history of lymphoma. We were asked to see her due to her atrial fibrillation with rapid ventricul ar response. HISTORY OF PRESENT ILLNESS: This very unfortunate 72-year-old female with a long history of lymphoma . She has undergone chemotherapy. She last was seen at [facility] for chemotherapy, at that time d iagnosed with atrial fibrillation, but was not apparently put on any oral anticoagulations due to her pancytopenia and low platelet count. She comes in today with a neutropenic fever and has heart rate s in the 140s with atrial fibrillation. She was given one dose of digoxin orally and the heart rate is now in the low 100s. She denied any chest pain, but she has been somewhat short of breath which w ould not be unusual with her present situation and she also has some mild lower extremity edema. PAST MEDICAL HISTORY: Significant for the lymphoma as noted above. She has had a large B cell lymph twila which was diagnosed in 2007 as well as follicular lymphoma in 2016. She has myelodysplastic synd brian. She has a history of renal insufficiency, hypertension, also history of hypercalcemia as well as obesity. She has had biopsies, umbilical hernias. MEDICATIONS PRIOR TO ADMISSION: Included allopurinol, Coreg, Pepcid, furosemide, losartan, potassium , pravastatin, tramadol, and vitamin D3. SOCIAL HISTORY: Please refer the notes dictated by the nurse practitioner. FAMILY HISTORY: Please refer the notes dictated by the nurse practitioner. REVIEW OF SYSTEMS: Please refer the notes dictated by the nurse practitioner. PHYSICAL EXAMINATION: GENERAL: Reveals an elderly female who is in no acute distress at this time. She does complain of b eing very cold, however, and is all wrapped up in blankets and heavy health coat, but is able to stil l answer the questions appropriately. VITAL SIGNS: Her blood pressure was 97/60, heart rate was 100 to 110, respiratory rate 14, O2 satura tion 99%, temperature at this time is 98.4. HEENT: Reveals the head to be normocephalic, atraumatic. Carotid pulses are present. I did not hea r any bruits. CHEST: Her chest actually seems to be clear to auscultation. I did not hear any rales, rhonchi or w heezing. CARDIOVASCULAR: Reveals an irregular rhythm, gross murmurs. She has a very soft murmur and does not appear to be significant. I did not hear any stenotic murmurs. ABDOMEN: Shows some obesity. Positive bowel sounds are present. EXTREMITIES: Show no clubbing, no cyanosis. She has minimal edema on the right lower extremity. Sh arpit has a large nonhealing ulcer on the posterior aspect of the leg to the lower calf area, is not drai aftab, but appears to have a dark eschar. Pedal pulses are decreased. NEUROLOGIC: The patient still appears to be intact. LABORATORY DATA: Her laboratory data is noted for the creatinine of 1.29, sodium is 132, BUN was 22, blood sugar is 131. Her WBC is 0.2, hemoglobin 9.5, hematocrit 27.5, and a platelet count was 40,00 0. IMPRESSION: 1. Atrial fibrillation with rapid ventricular response. We will try to control the heart rate with beta blockers as well as digoxin. She is not a candidate for oral anticoagulation due to the low queenie telet count of only 40,000. Should she develop bleeding problems, we will control the rate. 2. History of multiple lymphomas. This will be dealt with by the Hematology/Oncology Service. 3. Neutropenia fever. Obviously, a bad prognosis in this female. I believe she has had a previous episode; however, also of neutropenic fever. 4. Somewhat volume overload. Would continue her on a low dose of Lasix if the blood pressure tolera roberth it. At this time, her blood pressure is on the low side. She does not appear to be too uncomfor table. She came to the emergency room center because she had a fever and her brought her to the emergency room. Cultures are thus far negative. We would more than happy to continue to follow the patient with you. I will inform Dr. Wadsworth of her admission to the hospital and most likely he w sandra see her tomorrow. Also, please note her current medication, she has been started on empiric anti biotics and we will continue these. We will start her on digoxin as long she can tolerate that and w ill add low dose beta blockers if the blood pressure is reasonable.
[2017-10-14] MEDS: Digoxin 0.125 MG TAB PO SCH (12:15)
[2017-10-14 15:46] VITALS: BMI 36.8
[2017-10-14] MEDS ORDERED: Acetaminophen/Codeine 30-300mg Tablet PO PRN (19:56)
[2017-10-14] MEDS ORDERED: Sucralfate 1 GM/10 ML UDCUP PO PRN (20:04)
[2017-10-14] MEDS ORDERED: Ondansetron ODT 4 MG TAB PO SCH (21:00)
[2017-10-14] MEDS ORDERED: Famotidine 20 MG TAB PO SCH (21:00)
[2017-10-14] MEDS ORDERED: Melatonin 3 MG TAB PO SCH (21:00)
[2017-10-14] MEDS ORDERED: Atorvastatin Calcium 10 MG TAB PO SCH (21:00)
[2017-10-14] MEDS: Magnesium Oxide 250 MG TAB PO SCH (21:48)
[2017-10-14] MEDS: Ubidecarenone 50 MG CAP PO SCH (21:50)
[2017-10-14] MEDS: Potassium Chloride 20 MEQ TAB PO SCH (21:51)
--- NOTE | 2017-10-14 23:34 | PDOC.PN ---
- Subjective Encounter Start Date: 10/15/17 Encounter Start Time: 15:00 Subjective: nsg notes rev, lola ovn, no further fevers, dtr at bedside - Objective Resuscitation Status: Resuscitation Status FULL:Full Resuscitation Vital Signs & Weight: Vital Signs (12 hours) Temp Pulse Resp BP Pulse Ox 10/14/17 16:00 100.4 F H 68 18 150/72 H 96 10/14/17 12:15 76 10/14/17 12:00 98.5 F 79 17 124/60 99 Weight Admit Weight 198 lb Weight 194 lb 12.8 oz I&O: 10/13/17 10/14/17 10/15/17 06:59 06:59 06:59 Intake Total 450 960 Balance 450 960 Result Diagrams: 10/15/17 08:46 10/14/17 05:52 Phys Exam - Physical Examination Constitutional: NAD HEENT: PERRLA, moist MMs, sclera anicteric Respiratory: no wheezing, no rales, no rhonchi, clear to auscultation bilateral Cardiovascular: RRR, no significant murmur, no rub Gastrointestinal: soft, non-tender, no distention Musculoskeletal: no edema Neurological: moves all 4 limbs Dx/Plan - Plan * sepsis * + oncologic hx, neutropenia, concern for neutropenic fever * pending cultures * empiric abx * d/w pt and family at bedside * IVF * hemodynamically stable If continued stability, no further fevers/ chills/ ssx of infection, then will transition to oral abx Review of Systems - Medications/Allergies Allergies/Adverse Reactions: Allergies Allergy/AdvReac Type Severity Reaction Status Date / Time adhesive Allergy Rash Verified 05/13/17 01:12
[2017-10-15] MEDS: Cefepime 2 GM, Syringe 2.5 ML in Sodium Chloride 0.9% 10 ML SLOW IVP SCH (05:16)
[2017-10-15] MEDS: Vancomycin HCl 1.25 GM in Sodium Chloride 0.9% 250 ML 250 ML IVPB SCH (05:17)
[2017-10-15] MEDS: Acetaminophen 325 MG TAB PO PRN (05:19)
[2017-10-15] MEDS ORDERED: Carvedilol 25 MG TAB PO SCH (08:00)
[2017-10-15] MEDS ORDERED: Ergocalciferol 1.25 MG(50,000 UNITS) CAP PO SCH (09:00)
[2017-10-15] MEDS ORDERED: Stress 600 With Zinc 1 TAB PO SCH (09:00)
[2017-10-15] MEDS ORDERED: Furosemide 20 MG TAB PO SCH (09:00)
[2017-10-15] MEDS ORDERED: Cyanocobalamin (Vitamin B-12) 1,000 MCG TAB PO SCH (09:00)
[2017-10-15] MEDS ORDERED: Allopurinol 100 MG TAB PO SCH (09:00)
[2017-10-15] MEDS ORDERED: LENALIDOMIDE 15 MG PO SCH (09:00)
[2017-10-15 09:08] LABS: Hemoglobin 8.2 g/dL (12.0-16.0); Mean Corpuscular HGB CONC 33.6 g/dL (32.0-36.0); Mean Corpuscular Hemoglobin 31.6 pg (27.0-31.0); Mean Corpuscular Volume 94.1 fl (81.0-99.0); Mean Platelet Volume 9.9 fL (7.4-10.4); Platelet Count 33 thou/uL (130-400); Red Blood Cell (RBC) Count 2.59 mill/uL (4.20-5.40); White Blood Cell (WBC) Count 0.2 thou/uL (4.8-10.8)
[2017-10-15 09:28] LABS: Anisocytosis SLIGHT = 6-15 cells (100X) (0-5/hpf); MDiff Complete? YES; PLT Morphology Comment Appears Decreased
[2017-10-15] MEDS: Ubidecarenone 50 MG CAP PO SCH (09:53)
[2017-10-15] MEDS: Magnesium Oxide 250 MG TAB PO SCH (09:54)
[2017-10-15] MEDS: Digoxin 0.125 MG TAB PO SCH (09:54)
[2017-10-15] MEDS: Potassium Chloride 20 MEQ TAB PO SCH (09:55)
[2017-10-15 14:17] VITALS: BP 105/51; TEMP 97.1
[2017-10-16] MEDS ORDERED: valACYclovir 500 MG TAB PO SCH (09:00)
--- NOTE | 2017-10-16 14:06 | DIS ---
DATE OF ADMISSION: 10/13/2017 DATE OF DISCHARGE: 10/15/2017 DISCHARGE DIAGNOSES: 1. Concern for neutropenic fever. 2. Sepsis, ruled out. BRIEF SUMMARY OF HOSPITAL COURSE: This is a 72-year-old female who initially presented with a chief complaint of fever. Please see the original history and physical surrounding admission. Patient has a known history of lymphoma, currently undergoing active chemotherapy at [facility]. She was found to have had recent C. difficile along with diarrhea approximately a week ago. She had a fever of 102.5 prior to hospitalization, this was repeated within the first 24 hours of hospitalization. The patient was placed on empiric antibiotics. During this timeframe, she also developed rapid ventricular response of her chronic atrial fibrillation. Cardiology was consulted and Oncology was consulted. The patient was continued on a course of empiric antibiotics. She also had a possible area of cellulitis behind her leg. This improved with antibiotics and patient was transitioned to an oral regimen without any further issues with heart rate, arrhythmia or fevers. At the time of discharge, the patient is asked for close followup with her outpatient team including her primary care provider, her Oncology team here and at 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 The patient is able to complete teach-back. The remainder of the patient's chronic medical issues has remained stable. The patient's condition at discharge, at the time of discharge, the patient is hemodynamically stable, able to tolerate baseline ADLs and tolerate her baseline diet. The patient is also able to complete teach-back. CONSULTATIONS: 1. Oncology. 2. Cardiology. MEDICATION RECONCILIATION: Please see the EMR for full details. DISCHARGE INSTRUCTIONS: As above. Thank you for asking me to care for the patient. Questions or concerns, please contact me at [facility]. [facility]ENTER[facility]ilton
--- NOTE | 2017-11-13 14:58 | EKG ---
Test Reason : Blood Pressure : / mmHG Vent. Rate : 142 BPM Atrial Rate : 113 BPM P-R Int : 000 ms QRS Dur : 088 ms QT Int : 288 ms P-R-T Axes : 000 016 023 degrees QTc Int : 443 ms Atrial fibrillation with rapid ventricular response Abnormal ECG Confirmed by EUSEBIA BETANCOURT, RENAN ([id number]), senior editor ENOCH VELAZQUEZ ([id number]) on 11/13/2017 2:57:29 PM Referred By: Confirmed By:RENAN LAWS MD
== END 2017-10-15 13:11 | disposition home or self-care (01) | DRG 809 ==
LOC: ERS 03:30 → SURG A 04:55 → 2NO 11:15
PROVIDERS: ADMIT Internal Medicine Infectious Disease; ATTEND Internal Medicine Infectious Disease
DX: D70.9 Neutropenia, unspecified (principal); C82.90 Follicular lymphoma, unspecified, unspecified site; D69.6 Thrombocytopenia, unspecified; E66.01 Morbid (severe) obesity due to excess calories; L03.119 Cellulitis of unspecified part of limb; L97.919 Non-pressure chronic ulcer of unspecified part of right lower leg with unspecified severity; E83.52 Hypercalcemia; I48.0 Paroxysmal atrial fibrillation; Z68.36 Body mass index [BMI] 36.0-36.9, adult; R50.81 Fever presenting with conditions classified elsewhere; E78.5 Hyperlipidemia, unspecified; I12.9 Hypertensive chronic kidney disease with stage 1 through stage 4 chronic kidney disease, or unspecified chronic kidney disease; N18.2 Chronic kidney disease, stage 2 (mild); D46.9 Myelodysplastic syndrome, unspecified
CPT/HCPCS: 36415; 51702; 71045; 80048; 80053; 80202; 81003; 81015; 83605; 85025; 85060; 86850; 86900; 86901; 87040; 87086; 87804; 93005; 93970; 96361; 96365; 96375; A4216; J0692; J1160; J3370; J7050; Q0162

== ENCOUNTER 2017-10-19 10:12 | Day surgery (SDC) | payer MEDICARE, BC ==
[2017-10-19] MEDS ORDERED: Sodium Chloride 0.9% 30 ML ONE (10:17)
[2017-10-19] MEDS ORDERED: Dexamethasone 10 MG/ML VIAL SLOW IVP SCH (10:30)
[2017-10-19] MEDS ORDERED: diphenhydrAMINE 25 MG CAP PO SCH (10:30)
[2017-10-19] MEDS ORDERED: Acetaminophen 500 MG TAB PO SCH (10:30)
[2017-10-19 17:38] VITALS: BP 118/56; TEMP 98
[2017-10-19 18:37] LABS: Hemoglobin 9.4 g/dL (12.0-16.0); Mean Corpuscular Hemoglobin 32.1 pg (27.0-31.0); Mean Corpuscular Volume 91.7 fl (81.0-99.0); Platelet Count 34 thou/uL (130-400); RBC Distribution Width 15.9 % (11.5-14.5); Red Blood Cell (RBC) Count 2.92 mill/uL (4.20-5.40); White Blood Cell (WBC) Count 0.4 thou/uL (4.8-10.8)
== END 2017-10-19 17:39 | disposition home or self-care (01) ==
LOC: ONC/OP 10:12
PROVIDERS: ATTEND Internal Medicine Medical Oncology
PROC: 30233N1 Transfusion of Nonautologous Red Blood Cells into Peripheral Vein, Percutaneous Approach (ICD-10-PCS; principal; 2017-10-19)
DX: D69.6 Thrombocytopenia, unspecified; C82.90 Follicular lymphoma, unspecified, unspecified site; D46.9 Myelodysplastic syndrome, unspecified; E66.01 Morbid (severe) obesity due to excess calories; I48.0 Paroxysmal atrial fibrillation; E78.5 Hyperlipidemia, unspecified; D63.0 Anemia in neoplastic disease; Z91.048 Other nonmedicinal substance allergy status; I10 Essential (primary) hypertension; Z98.890 Other specified postprocedural states
CPT/HCPCS: 36430; 85025; 86850; 86900; 86901; 96374; A4216; J1100; J1642; P9016

== ENCOUNTER 2017-11-17 19:29 | Inpatient (IN) | payer MEDICARE, BC ==
[2017-11-17 21:10] LABS: Hemoglobin 8.7 g/dL (12.0-16.0); Mean Corpuscular Hemoglobin 30.9 pg (27.0-31.0); Mean Corpuscular Volume 90.7 fl (81.0-99.0); Mean Platelet Volume 9.6 fL (7.4-10.4); Platelet Count 25 thou/uL (130-400); RBC Distribution Width 15.1 % (11.5-14.5); Red Blood Cell (RBC) Count 2.83 mill/uL (4.20-5.40); White Blood Cell (WBC) Count 0.8 thou/uL (4.8-10.8)
[2017-11-17 21:27] LABS: ALT (SGPT) 31 U/L (8-55); AST (SGOT) 28 U/L (5-34); Alkaline Phosphatase 81 U/L (40-150); Anion Gap 15 mmol/L (10-20); BUN (Urea Nitrogen) 27 mg/dL (9.8-20.1); Bilirubin, Total 0.6 mg/dL (0.2-1.2); Calc. Creatinine Clearance 0 mL/min (70-130); Carbon Dioxide 21 mmol/L (23-31); Chloride 99 mmol/L (98-107); Estimated GFR-MDRD 23; Globulin 2.2 g/dL (2.4-3.5); Glucose 113 mg/dL (80-115); Magnesium 2.2 mg/dL (1.6-2.6); Potassium 4.6 mmol/L (3.5-5.1); Protein, Total 5.2 g/dL (6.0-8.3); Sodium 130 mmol/L (136-145)
[2017-11-17 21:31] LABS: Calcium 12.2 mg/dL (7.8-10.44)
[2017-11-17 21:34] LABS: Band 16 % (5-11); Eosinophils 4 % (0-10); Lymphocytes 12 % (21-51); MDiff Complete? YES; Monocytes 16 % (0-10); Neutrophil 52 % (42-75); PLT Morphology Comment Appears Decreased
[2017-11-17 22:22] LABS: INR-International Normal Ratio 1.1; PTT 33.5 SEC (22.9-36.1); Prothrombin Time 13.8 SEC (12.0-14.7)
[2017-11-18 01:07] VITALS: BMI 32.5
[2017-11-18] MEDS: traMADol HCl 50 MG TAB PO PRN ×2 (01:23→21:06)
[2017-11-18] MEDS: Sodium Chloride 0.9% 1,000 ML IV SCH ×4 (02:29→23:15)
[2017-11-18] MEDS ORDERED: Senokot 8.6 MG TAB PO PRN (02:56)
[2017-11-18] MEDS ORDERED: Ondansetron HCl/PF 4 MG/2 ML Vial IVP PRN (02:56)
[2017-11-18] MEDS ORDERED: Acetaminophen 325 MG TAB PO PRN (02:56)
[2017-11-18] MEDS ORDERED: Ondansetron ODT 4 MG TAB PO PRN (02:56)
[2017-11-18] MEDS ORDERED: Milk Of Magnesia 30 ML UDCUP PO PRN (02:56)
[2017-11-18] MEDS ORDERED: Calcium Carbonate 500 MG ChewTAB PO PRN (02:56)
--- NOTE | 2017-11-18 03:40 | HP ---
DATE OF ADMISSION: 11/17/2017 PRIMARY CARE PHYSICIAN: Dr. Rand. PRIMARY ONCOLOGIST: Dr. Prado. CHIEF COMPLAINT: Abnormal labs. HISTORY OF PRESENT ILLNESS: The patient is a 72-year-old female with lymphoma, currently on chemothe rapy, who presented to the emergency room with above complaints. The patient was discharged from this facility approximately 4 weeks ago. She was readmitted at [facility] for hypercalcemia. She was discharged from [facility] last week. The patient was seen by her oncologist at [facility] today. She had some routine labs done. When s he returned home, she received a phone call from the oncologist and Dr. Prado due to elevated calc ium. She denies any fever, chills, nausea, vomiting, diarrhea or constipation. She was also found t o have neutropenia with WBC of 0.8 in the emergency room with platelet count of 25. No active bleedi ng was reported. PAST MEDICAL HISTORY: 1. Follicular lymphoma, currently on chemotherapy, last chemotherapy 3 weeks ago. 2. Myelodysplastic syndrome. 3. Hypertension. 4. Paroxysmal atrial fibrillation. 5. Hospitalization for hyperkalemia. PAST SURGICAL HISTORY: 1. Hernia repair. 2. MediPort placement. 3. Cholecystectomy. 4. Bilateral tubal ligation. ALLERGIES: The patient is allergic to ADHESIVES. CURRENT HOME MEDICATIONS: To be verified. Family to get the accurate list of medications. SOCIAL HISTORY: The patient currently lives at home with her . No tobacco, alcohol or drug u se. She makes her own decision with the help of her family. She is FULL CODE. FAMILY HISTORY: Negative for premature coronary artery disease or malignancy. REVIEW OF SYSTEMS: The following complete review of systems was negative, unless otherwise mentioned in the HPI or below: Constitutional: Weight loss or gain, ability to conduct usual activities. Sk in: Rash, itching. Eyes: Double vision, pain. ENT/Mouth: Nose bleeding, neck stiffness, pain, te nderness. Cardiovascular: Palpitations, dyspnea on exertion, orthopnea. Respiratory: Shortness of breath, wheezing, cough, hemoptysis, fever or night sweats. Gastrointestinal: Poor appetite, abdom inal pain, heartburn, nausea, vomiting, constipation, or diarrhea. Genitourinary: Urgency, frequenc y, dysuria, nocturia. Musculoskeletal: Pain, swelling. Neurologic/Psychiatric: Anxiety, depressio n. Allergy/Immunologic: Skin rash, bleeding tendency. PHYSICAL EXAMINATION: VITAL SIGNS: Temperature 98, respiration of 20, pulse rate of 115 with blood pressure of 84/56. Aft er IV fluids, the heart rate and blood pressure improved. GENERAL: A 72-year-old female, in no apparent distress. The patient is not confused. HEENT: Head atraumatic, normocephalic. Sclerae are anicteric. Dry mucous membranes. No oral lesio n. NECK: Supple, no JVD appreciated. No carotid bruit. LUNGS: Clear to auscultation bilaterally, no wheezing, rales or rhonchi. HEART: S1, S2 present. Regular rate and rhythm. No murmur, rubs, or gallops appreciated. ABDOMEN: Soft, nontender, bowel sounds present, no rebound or guarding. EXTREMITIES: No edema or calf tenderness. There is chronic lesion over the right posterior calf, wh ich has not worsened. NEUROLOGIC: Grossly nonfocal, moves all four extremities. PSYCHIATRY: Alert, awake, oriented x3. SKIN: Warm and dry. LYMPH NODES: No palpable lymph nodes in the neck. PERIPHERAL VASCULAR: Radial pulses palpable bilaterally. MUSCULOSKELETAL: No joint swelling or tenderness. LABORATORY FINDINGS: Calcium 12.2 with sodium 130, BUN 27, creatinine 2.16. Her creatinine last thu at baseline was 1.08. Albumin 3.0. PT/INR in normal range. IMAGING: Chest x-ray by my review, last admission, was negative for infiltrate. IMPRESSION AND PLAN: 1. Hypercalcemia secondary to malignancy. The patient is currently admitted to the Oncology floor. Oncology will be consulted. We will continue IV hydration. We will discuss with Oncology in a.m. i f zoledronic acid can be administered. We will repeat labs in a.m. She had mild confusion per famil y that has more or less improved. 2. Acute kidney injury on chronic kidney disease, stage 3, probably secondary to dehydration. We wi ll continue IV fluids. We will monitor labs on the daily basis. 3. Neutropenia, probably secondary to chemotherapy/lymphoma. There was no fever reported. 4. Pancytopenia secondary to chemotherapy/lymphoma. 5. Paroxysmal atrial fibrillation. We will resume her home medications once confirmed. The patient is not a candidate for anticoagulation due to thrombocytopenia. 6. Hypertension. The patient was hypotensive in the emergency room. 7. Dyslipidemia. We will resume home medications once confirmed. Plan of care was discussed with the patient and the family in detail. They stated understanding.
[2017-11-18] MEDS: Allopurinol 100 MG TAB PO SCH (08:00)
[2017-11-18] MEDS: Famotidine 20 MG TAB PO SCH (08:00)
[2017-11-18] MEDS: Atorvastatin Calcium 10 MG TAB PO SCH (08:01)
[2017-11-18 08:09] LABS: Hemoglobin 8.2 g/dL (12.0-16.0); Mean Corpuscular HGB CONC 34.2 g/dL (32.0-36.0); Mean Corpuscular Volume 90.6 fl (81.0-99.0); Mean Platelet Volume 9.4 fL (7.4-10.4); Platelet Count 26 thou/uL (130-400); RBC Distribution Width 14.7 % (11.5-14.5); Red Blood Cell (RBC) Count 2.65 mill/uL (4.20-5.40); White Blood Cell (WBC) Count 0.9 thou/uL (4.8-10.8)
[2017-11-18 08:22] LABS: Anion Gap 13 mmol/L (10-20); BUN (Urea Nitrogen) 26 mg/dL (9.8-20.1); Calc. Creatinine Clearance 33 mL/min (70-130); Calcium 11.4 mg/dL (7.8-10.44); Carbon Dioxide 23 mmol/L (23-31); Chloride 102 mmol/L (98-107); Estimated GFR-MDRD 26; Glucose 132 mg/dL (80-115); Magnesium 2.5 mg/dL (1.6-2.6); Sodium 133 mmol/L (136-145)
[2017-11-18 08:55] LABS: Band 24 % (5-11); Eosinophils 4 % (0-10); Lymphocytes 18 % (21-51); MDiff Complete? YES; Monocytes 16 % (0-10); Neutrophil 38 % (42-75); PLT Morphology Comment Appears Decreased; Polychromasia SLIGHT = 2-3 cells (100X) (0-2/hpf)
[2017-11-18] MEDS ORDERED: valACYclovir 500 MG TAB PO SCH (09:00)
--- NOTE | 2017-11-18 16:46 | CON ---
DATE OF CONSULTATION: 11/18/2017 REASON FOR CONSULTATION: Hypercalcemia. HISTORY OF PRESENT ILLNESS: Ms. Cutler is a 72-year-old female with myelodysplastic syndrom e who is undergoing treatment at [facility]. She was seen yesterday by her oncologist and had routi ne labs drawn. They were on their way home from [place] when her oncologist called with an elevated calcium level of greater than 12. She was in contact with Dr. Prado who sent her to the emergency room for admission for IV fluids and treatment. She has a complicated oncological history where she had diffuse large B cell lymphoma in 2008. She underwent treatment and then had a follicular lympho ma in 2015. She then was diagnosed with myelodysplastic syndrome manifested by chronic pancytopenia in 2017, felt this was likely treatment related. She has also had multiple issues with hypercalcemia . Family states that over the past week, she has gotten somewhat weaker. She does have occasional m ild confusion. The patient denies any shortness of breath, no chest pain. No abdominal pain, no kul[place] sea, vomiting, diarrhea, constipation. There is no bleeding. CBC in the ER showed white count of 0. 8, hemoglobin of 8.7 and platelet count of 25,000. Her calcium was 12.2. She has been on 150 mL of IV fluids since admission. Her calcium this morning was 11.4. PAST MEDICAL HISTORY: 1. Diffuse large B cell lymphoma in 2007. 2. Follicular lymphoma in 2015. 3. Myelodysplastic syndrome with chronic pancytopenia in 2017. 4. Chronic kidney disease. 5. Hypertension. 6. Chronic hypercalcemia. PAST SURGICAL HISTORY: 1. Umbilical hernia repair. 2. MediPort placement. 3. Cholecystectomy. 4. Tubal ligation. ALLERGIES: ADHESIVES. HOME MEDICATIONS: 1. Tylenol #3 p.r.n. 2. Allopurinol 100 mg daily. 3. Midamor 5 mg daily. 4. Coreg 25 mg b.i.d. 5. Pepcid daily. 6. Zyprexa daily. 7. K-Dur 40 mEq daily. 8. Pravastatin 40 mg daily. 9. Tramadol p.r.n. 10. Valacyclovir 500 mg every 2 days. FAMILY HISTORY: Her father had liver cancer. SOCIAL HISTORY: She is and lives with her spouse. No alcohol, tobacco or illicit drug use. REVIEW OF SYSTEMS: Twelve point review of systems is negative except for noted in HPI. PHYSICAL EXAMINATION: VITAL SIGNS: Temperature is 98.1, pulse is 88, respiratory rate 18, BP is 107/60. She is 99% on tess m air. GENERAL: Chronically ill-appearing female in no acute distress. HEENT: Normocephalic, atraumatic. Pupils are equal and reactive to light. NECK: Supple. CARDIOVASCULAR: Regular rate and rhythm. LUNGS: Clear. ABDOMEN: Soft, nontender, bowel sounds are positive. EXTREMITIES: No clubbing, cyanosis or edema. SKIN: No rash. HEMATOLOGIC: No petechia or purpura. She has scattered bruising on her arms. NEUROLOGIC: Nonfocal. PSYCHIATRIC: The patient is alert and oriented and appropriate. PERTINENT LABORATORY DATA AND IMAGING DATA: Current WBCs are 0.9, hemoglobin 8.2, hematocrit 24.0, p latelets are 26,000, 38% neutrophils, 24% bands, 18% lymphocytes, 16% monocytes. Sodium is 133, pota ssium 5.0, chloride 102, CO2 is 23, BUN is 26, creatinine 1.93, calcium is 11.9, magnesium 2.5, total bilirubin is 0.6, AST 28, ALT 31, alkaline phosphatase is 81, serum total protein is 5.2, albumin 3. 0, globulin 2.2. ASSESSMENT: 1. Chronic pancytopenia secondary to lymphoma and myelodysplastic syndrome. 2. Hypercalcemia. DISCUSSION: The patient's oncologist at [facility], Dr. Prado have been in contact with each [facility] er. They are recommending a dose of Xgeva which will be given in the acute care facility here. We wi ll continue IV fluids overnight. Recheck her calcium in the morning and hopefully she will be able t o go home. She will follow up next week with us for repeat CBC and possible additional shot. Thank you for the consult.
[2017-11-18] MEDS ORDERED: OLANZapine 5 MG TAB PO SCH (21:00)
[2017-11-18] MEDS ORDERED: Melatonin 3 MG TAB PO SCH (21:00)
[2017-11-18] MEDS ORDERED: ALPRAZolam 0.25 MG TAB PO PRN (23:46)
[2017-11-19] MEDS: traMADol HCl 50 MG TAB PO PRN (01:39)
[2017-11-19] MEDS: Sodium Chloride 0.9% 1,000 ML IV SCH (05:39)
[2017-11-19 06:59] LABS: Platelet Count 23 thou/uL (130-400); White Blood Cell (WBC) Count 0.7 thou/uL (4.8-10.8)
[2017-11-19 07:06] LABS: Anion Gap 5 mmol/L (10-20); BUN (Urea Nitrogen) 22 mg/dL (9.8-20.1); Calc. Creatinine Clearance 34 mL/min (70-130); Calcium 11.2 mg/dL (7.8-10.44); Carbon Dioxide 24 mmol/L (23-31); Chloride 111 mmol/L (98-107); Estimated GFR-MDRD 26; Glucose 81 mg/dL (80-115); Magnesium 2.1 mg/dL (1.6-2.6); Potassium 4.2 mmol/L (3.5-5.1); Sodium 136 mmol/L (136-145)
[2017-11-19 07:32] LABS: Hemoglobin 7.4 g/dL (12.0-16.0); Mean Corpuscular Hemoglobin 31.3 pg (27.0-31.0); Mean Corpuscular Volume 92.1 fl (81.0-99.0); RBC Distribution Width 15.5 % (11.5-14.5); Red Blood Cell (RBC) Count 2.37 mill/uL (4.20-5.40)
[2017-11-19 08:38] LABS: Band 16 % (5-11); Lymphocytes 32 % (21-51); MDiff Complete? YES; Monocytes 8 % (0-10); Neutrophil 44 % (42-75); PLT Morphology Comment Appears Decreased; Polychromasia SLIGHT = 2-3 cells (100X) (0-2/hpf)
[2017-11-19 08:42] VITALS: BP 104/57; TEMP 98.9
[2017-11-19] MEDS: Atorvastatin Calcium 10 MG TAB PO SCH (09:17)
[2017-11-19] MEDS: Allopurinol 100 MG TAB PO SCH (09:17)
[2017-11-19] MEDS: Famotidine 20 MG TAB PO SCH (09:17)
--- NOTE | 2017-11-19 12:28 | DIS ---
DATE OF ADMISSION: 11/18/2017 DATE OF DISCHARGE: 11/19/2017 PRIMARY CARE PROVIDER: Dinora Rand D.O. DISCHARGE DIAGNOSES: 1. Hypercalcemia. 2. Acute on chronic renal insufficiency. CONDITION OF PATIENT ON THE DAY OF DISCHARGE: Stable. I assessed Ms. Cutler on the day of discharge. She denies any chest pain or shortness of breath. Vital signs are stable. S1 and S2 are heard, re gular. Lungs are clear to auscultation bilaterally. CONSULTATIONS DURING THIS HOSPITALIZATION: Oncology, Dr. Prado. HOSPITAL COURSE: Ms. Cutler is a pleasant 72-year-old lady who was admitted to [facility] on 11/19/2017 for hypercalcemia. She received intravenous fluids. She also had acute on chronic renal insufficiency, which improved. After contact with the patient's oncologist, patient r eceived a dose of Xgeva by Oncology Service. She has been cleared for discharge home and to follow u p with Oncology Service next week for repeat labs. On the day of discharge, she has white count of 700, hemoglobin 7.4, and platelet count 23,000. Sodi um 136, potassium 4.2, calcium 11.2, corrected calcium for albumin 12.0. Creatinine is 1.88, down fr om 2.16 on 11/17/2017. DISCHARGE MEDICATIONS: No change was made to her preadmission home medications as dictated on histor y and physical note on 11/18/2017. Many thanks for allowing me to participate in your patient's care. Please feel free to contact me wi th any questions or concerns. DISCHARGE DESTINATION: Home. TOTAL AMOUNT OF TIME SPENT COORDINATING THIS DISCHARGE: 32 minutes.
--- NOTE | 2017-11-20 15:36 | PQF ---
LORAINE MELENDEZ VINAYA KUMAR MD [id number] CLINICAL DOCUMENTATION CLARIFICATION FORM: POST DISCHARGE Addendum to original discharge summary date: ____ Late entry note date: __ Please exercise your independent, professional judgment in responding to the clarification form. Clinical indicators are provided on the bottom of this form for your review. Thank you. Please check appropriate box(s): AMI TYPE: [ ] Acute Coronary Syndrome (ACS) without Acute TX meaning Unstable Angina [ ] NSTEMI [ ] NSTEMI Type II [ ] Demand Ischemia [ ] STEMI (please also specify site and arterysee below) If STEMI, SITE:[ ] Anterior [ ] Apical [ ] Lateral [ ] Inferior [ ] Posterior [ ] Q Wave [ ] Septal [ ] Unable to Determine SPECIFIC ARTERY (Based on site) [ ] Left Main Coronary[ ] Diagonal [ ] Left Anterior Descending[ ] Oblique Marginal [ ] Right Coronary Artery[ ] Unable to Determine [ ] Left Circumflex ONSET OF INFARCTION: [ ] Onset Less than 4 weeks of admission [ ] Onset Greater than 4 weeks of admission [ ] Unable to determine DUE TO (if applicable): [ ] Stent occlusion [ ] In-Stent stenosis [ ] Occlusion of coronary bypass graft [ ] Complication of PCI [ ] Underlying CAD [ ] Other [ ] Other diagnosis [ ] Unable to determine In addition, please specify: Present on Admission (POA): [ ] Yes [ ] No [ ] Unable to determine CLINICAL INDICATORS - SIGNS / SYMPTOMS / LABS Elevated biomarkers (CK-MB, Troponin T or I) - 0.030 11/16/2017 RISKS: Acute systolic heart failure, HTN - Consult 11/16/2017 TREATMENTS: Lasix IV 40mg, Cardiology Consult, Cotinue aspirin with lovenox - HP 11/16/2017 (This form is maintained as a part of the permanent medical record) 2014 [employer] All Rights Reserved Olga Rodriguez, VANESSA, [employer]ALENT [employer] RELATIONSHIP MANAGER, [email or web address]
== END 2017-11-19 12:50 | disposition home or self-care (01) | DRG 640 ==
LOC: ERS 19:29 → ONC 21:05
PROVIDERS: ADMIT Emergency Medicine; ATTEND Emergency Medicine
DX: E83.52 Hypercalcemia (principal); D61.810 Antineoplastic chemotherapy induced pancytopenia; C82.90 Follicular lymphoma, unspecified, unspecified site; N17.9 Acute kidney failure, unspecified; E86.0 Dehydration; I48.0 Paroxysmal atrial fibrillation; I12.9 Hypertensive chronic kidney disease with stage 1 through stage 4 chronic kidney disease, or unspecified chronic kidney disease; N18.3 Chronic kidney disease, stage 3 (moderate); D70.2 Other drug-induced agranulocytosis; D46.9 Myelodysplastic syndrome, unspecified; E78.5 Hyperlipidemia, unspecified; T45.1X5A Adverse effect of antineoplastic and immunosuppressive drugs, initial encounter; Z79.899 Other long term (current) drug therapy; Z90.49 Acquired absence of other specified parts of digestive tract
CPT/HCPCS: 36415; 80048; 80053; 83735; 85025; 85610; 85730; 93005; 96360; 96361; A4216; J0897; J1642

== ENCOUNTER 2017-11-25 09:28 | Inpatient (IN) | payer MEDICARE, BC ==
[2017-11-25] MEDS ORDERED: Sodium Chloride 0.9% 40 ML ONE (09:43)
[2017-11-25] MEDS ORDERED: diphenhydrAMINE 25 MG CAP PO SCH (09:45)
[2017-11-25] MEDS ORDERED: Acetaminophen 500 MG TAB PO SCH (09:45)
[2017-11-25] MEDS ORDERED: Dexamethasone 4 mg/ml Vial SLOW IVP SCH (09:45)
[2017-11-25] MEDS ORDERED: Acetaminophen/Codeine 30-300mg Tablet PO PRN (13:13)
[2017-11-25 16:19] LABS: Hemoglobin 8.5 g/dL (12.0-16.0); Mean Corpuscular HGB CONC 34.3 g/dL (32.0-36.0); Mean Corpuscular Hemoglobin 30.6 pg (27.0-31.0); Mean Corpuscular Volume 89.1 fl (81.0-99.0); Mean Platelet Volume 8.5 fL (7.4-10.4); Platelet Count 22 thou/uL (130-400); RBC Distribution Width 13.6 % (11.5-14.5); Red Blood Cell (RBC) Count 2.76 mill/uL (4.20-5.40); White Blood Cell (WBC) Count 1.4 thou/uL (4.8-10.8)
[2017-11-25 16:46] LABS: Band 21 % (5-11); Lymphocytes 15 % (21-51); MDiff Complete? YES; Monocytes 9 % (0-10); Neutrophil 54 % (42-75); Ovalocytes SLIGHT = 2-5 cells (100X) (0-1/hpf); PLT Morphology Comment Appears Decreased; Polychromasia SLIGHT = 2-3 cells (100X) (0-2/hpf)
[2017-11-25 17:28] VITALS: BMI 34.1
--- NOTE | 2017-11-25 17:50 | CON ---
DATE OF CONSULTATION: 11/25/2017 REASON FOR CONSULTATION: Hypercalcemia. HISTORY OF PRESENT ILLNESS: Ms. Cutler is a pleasant 72-year-old female with past medical h istory of lymphoma and myelodysplastic syndrome. She was treated by Dr. Prado, but it was referre d torri to MD Gupta for their assistance as she was diagnosed with myelodysplastic syndrome manifes nhan by chronic pancytopenia. She has been struggling with hypercalcemia recently and was admitted [facility] for this issue. She received one dose of Xgeva. Her calcium was 12.12 on admission last wee k and at time of discharge it was 11.2. She presented to our clinic this morning for her second dose of Xgeva. She was having some altered mental status. Her calcium had increased to 13.9 and her cre atinine was elevated at 2.45. She was pancytopenic per usual with her white count of 1.4, hemoglobin of 7.3 and a platelet count 21,000. She has no issues with bleeding. She was admitted for blood tr ansfusion and IV fluids for hypercalcemia. PAST MEDICAL HISTORY: 1. Diffuse large B cell lymphoma in 2007. 2. Follicular lymphoma in 2015. 3. Myelodysplastic syndrome with chronic pancytopenia in 2017 4. Chronic kidney disease. 5. Hypertension. 6. Chronic hypercalcemia. PAST SURGICAL HISTORY: 1. Umbilical hernia repair 2. MediPort placement. 3. Cholecystectomy. 4. Tubal ligation. ALLERGIES: ADHESIVES. HOME MEDICATIONS: 1. Tylenol No. 3 p.r.n. 2. Allopurinol daily. 3. Midamor daily. 4. Coreg. 5. Pepcid. 6. Zyprexa. 7. K-Dur. 8. Pravastatin. 9. Tramadol. 10. Valacyclovir. FAMILY HISTORY: Her father had liver cancer. SOCIAL HISTORY: She is and lives with her spouse. No alcohol, tobacco or illicit drug use. REVIEW OF SYSTEMS: Twelve-point review of systems is negative except for noted in HPI. PHYSICAL EXAMINATION: VITAL SIGNS: Temperature is 98.9, pulse is 129, respiratory rate is 16, blood pressure is 104/57. S he is 100% on room air. GENERAL: Chronically ill-appearing female, in no acute distress. HEENT: Normocephalic, atraumatic. Pupils are equal and reactive to light. NECK: Supple. CARDIOVASCULAR: Regular rate and rhythm. She has tachycardia. LUNGS: Clear. ABDOMEN: Soft, nontender, bowel sounds are positive. EXTREMITIES: No clubbing, cyanosis or edema. SKIN: No rash. HEMATOLOGIC: No petechia or purpura. NEUROLOGIC: Nonfocal. PSYCHIATRIC: The patient is mildly confused at this time. PERTINENT LABORATORY AND X-RAYS: WBCs are 1.4, hemoglobin 7.3, hematocrit 22.9, platelet count is 21 ,000. Sodium 135, potassium 3.7, chloride 100, CO2 is 26, BUN is 29, creatinine 2.45, calcium is 13. 9, phosphorus 3.9, uric acid is 4.2, protein is 5.1, albumin 3.3, globulin 1.8, total bilirubin is 0. 6, AST is 30, ALT is 19, alkaline phosphatase is 89. ASSESSMENT: 1. Myelodysplastic syndrome with chronic pancytopenia. 2. Hypercalcemia with altered mental status. DISCUSSION: The patient is being admitted for IV fluids and a blood transfusion. She will receive 2 units of packed RBCs. Her white count is 700, is at baseline. Her platelets at 21,000, are at base line. She denies any bleeding at this time. She will receive a dose of Xgeva for her hypercalcemia. Hospice was discussed with the daughter and the patient. The goal is to get the patient to her gra nddaughter's graduation on 12/11/2016 after which hospice is likely to happen. Hopefully, she can be transfused and given medication and improved overnight as would like to discharge her as soon as pos sible given her neutropenia. Thank you for the consult.
[2017-11-25] MEDS: Sodium Chloride 0.9% 1,000 ML IV SCH ×2 (18:18→21:40)
[2017-11-25] MEDS: traMADol HCl 50 MG TAB PO SCH ×2 (18:21→20:49)
[2017-11-25] MEDS: Melatonin 3 MG TAB PO SCH (20:49)
[2017-11-25] MEDS: OLANZapine 5 MG TAB PO SCH ×3 (20:49→21:32)
[2017-11-25] MEDS: Carvedilol 25 MG TAB PO SCH (20:49)
[2017-11-25] MEDS: Famotidine/PF 20 mg/2ml Vial SLOW IVP SCH (21:14)
[2017-11-25] MEDS ORDERED: valACYclovir 500 MG TAB PO SCH (22:30)
--- NOTE | 2017-11-26 00:39 | HP ---
CHIEF COMPLAINT: Sent from Oncology office for hypercalcemia. HISTORY OF PRESENT ILLNESS: Patient is a very pleasant 72-year-old female with a history of MDS and lymphoma, who was recently discharged from the hospital who comes in today with hypercalcemia. Marquez nugent was admitted a few weeks ago for similar problem. Patient currently denies any nausea, vomiting, abdominal pain, shortness of breath, chest pain, or diarrhea. Patient's family does feel that she ge ts a little confused at times. Patient did get a dose of Xgeva last week by Oncology services. Acco rding to Oncology's notes, patient's hypercalcemia is not responsive to calcitonin or bisphosphonates . Patient today was came into the office to get Xgeva and was found to have a calcium of 13.3 and wa s asked to come into the hospital for further evaluation. PAST MEDICAL HISTORY: As of the followin. Follicular lymphoma. 2. Myelodysplastic syndrome. 3. Hypertension. 4. Paroxysmal atrial fibrillation. 5. History of C. diff. PAST SURGICAL HISTORY: Patient has a hernia repair, had a MediPort placement, cholecystectomy, and b ilateral tubal ligation. FAMILY HISTORY: There is no family history of lymphoma. SOCIAL HISTORY: She denies any alcohol use, drug use, or tobacco use. ALLERGIES: She is allergic to ADHESIVE. MEDICATIONS: As the following: She takes allopurinol 100 mg daily, Coreg 25 mg p.o. b.i.d., Pepcid 20 mg daily, furosemide 20 mg b.i.d., potassium 20 mEq daily, vitamin D3 of 1000 units daily, melaton in 3 mg daily, Zofran 8 mg daily p.r.n., pravastatin 40 mg daily, valacyclovir 500 mg every other day . REVIEW OF SYSTEMS: All negative except for the ones mentioned above in the HPI. PHYSICAL EXAMINATION: VITAL SIGNS: Temperature of 98.2, heart rate of 92, 97% on room air, blood pressure of 116/64. GENERAL: She is awake, alert, oriented x3, does not appear in distress. CARDIOVASCULAR: S1, S2 present. No murmurs, rubs, or gallops. ABDOMEN: Soft, nontender. Bowel sounds are present x2. EXTREMITIES: No edema. She does have a port on her right chest wall area. LABORATORY DATA: WBC of 1.4, hemoglobin of 8.5, hematocrit of 24.6, platelets of 23 and her chemistr y indicates sodium of 135, potassium of 3.7, BUN of 29, creatinine of 2.45, calcium of 13.9. ASSESSMENT AND PLAN: Patient is a very pleasant 72-year-old female who presents to the hospital with complaints for hyperglycemia, hypercalcemia most likely secondary to her underlying malignancy. We will start patient on some IV hydration. Oncology consulted who will start patient on Xgeva. We adebayo l continue to trend calcium daily. 1. Acute kidney injury, this could be secondary to a little bit of dehydration. Hopefully, the flui ds will improve her creatinine. 2. Hypertension. We will continue her home medications. 3. Paroxysmal atrial fibrillation. We will continue her home medications. I did speak with patient in regard for possible hospice. Patient states that she wants to be a life and see her [employer] graduate. 4. Deep venous thrombosis prophylaxis. We will not be able to do heparin or Lovenox since patient h as currently acute kidney injury and platelets of 25. We will put patient on some SCDs.
[2017-11-26] MEDS: traMADol HCl 50 MG TAB PO SCH ×4 (01:41→11:52)
[2017-11-26 05:43] LABS: Hemoglobin 9.6 g/dL (12.0-16.0); Mean Corpuscular HGB CONC 34.4 g/dL (32.0-36.0); Mean Corpuscular Hemoglobin 30.6 pg (27.0-31.0); Mean Corpuscular Volume 89.2 fl (81.0-99.0); Mean Platelet Volume 8.4 fL (7.4-10.4); Platelet Count 24 thou/uL (130-400); RBC Distribution Width 13.6 % (11.5-14.5); Red Blood Cell (RBC) Count 3.13 mill/uL (4.20-5.40); White Blood Cell (WBC) Count 1.3 thou/uL (4.8-10.8)
[2017-11-26 05:49] LABS: Anion Gap 10 mmol/L (10-20); BUN (Urea Nitrogen) 28 mg/dL (9.8-20.1); Calc. Creatinine Clearance 34 mL/min (70-130); Carbon Dioxide 25 mmol/L (23-31); Chloride 100 mmol/L (98-107); Estimated GFR-MDRD 24; Glucose 192 mg/dL (80-115); Potassium 3.8 mmol/L (3.5-5.1); Sodium 131 mmol/L (136-145)
[2017-11-26 05:53] LABS: Calcium 12.1 mg/dL (7.8-10.44)
[2017-11-26 06:00] LABS: Lymphocytes 18 % (21-51); MDiff Complete? YES; Monocytes 20 % (0-10); Neutrophil 62 % (42-75); PLT Morphology Comment Appears Decreased; RBC Morphology Normal
[2017-11-26] MEDS: Carvedilol 25 MG TAB PO SCH ×2 (08:24→20:56)
[2017-11-26] MEDS: Atorvastatin Calcium 10 MG TAB PO SCH (08:25)
[2017-11-26] MEDS: Allopurinol 100 MG TAB PO SCH (08:25)
[2017-11-26] MEDS: Sodium Chloride 0.9% 1,000 ML IV SCH ×2 (08:26→17:27)
[2017-11-26] MEDS ORDERED: Enoxaparin Sodium 40 MG/0.4 ML SYRINGE SC SCH (09:00)
[2017-11-26] MEDS: Famotidine/PF 20 mg/2ml Vial SLOW IVP SCH (11:15)
--- NOTE | 2017-11-26 13:55 | PDOC.PN ---
- Subjective Encounter Start Date: 11/26/17 Encounter Start Time: 10:30 Subjective: pt up in bed no complains - Objective Resuscitation Status: Resuscitation Status DNR:Do Not Resuscitate Vital Signs & Weight: Vital Signs (12 hours) Temp Pulse Resp BP Pulse Ox 11/26/17 11:49 97.7 F 99 16 113/65 98 11/26/17 08:00 97.5 F L 77 16 98 11/26/17 07:34 97.5 F L 77 16 127/83 98 11/26/17 03:48 97.4 F L 78 16 140/86 98 Weight Admit Weight 180 lb 9.6 oz Weight 180 lb 9.6 oz I&O: 11/25/17 11/26/17 11/27/17 06:59 06:59 06:59 Intake Total 1750 Balance 1750 Result Diagrams: 11/26/17 05:27 11/26/17 05:27 Phys Exam - Physical Examination HEENT: PERRLA, moist MMs, sclera anicteric, TM's clear, oral pharynx no lesions , 2+ tonsils Neck: no nodes, no JVD, supple, full ROM Respiratory: no wheezing, no rales, no rhonchi, wheezing present, clear to auscultation bilateral Cardiovascular: RRR, no significant murmur, no rub, gallop, irregular Gastrointestinal: soft, non-tender, no distention, positive bowel sounds Dx/Plan - Plan 1) hypercalcemia 2) pancytopenia 3) HTn 4) follicular lymphoma plan: pt's calcium level today is 12. pt will be getting xgeva. pt received one unit of blood yesterday. pt's platelets are still low, will continue to monitor. blood pressure stable. will order bmp in am. hospice to see pt and family. will continue iv fluids. * . Review of Systems - Review of Systems Eyes: negative: Pain, Vision Change, Conjunctivae Inflammation, Eyelid Inflammation, Redness, Other ENT: negative: Ear Pain, Ear Discharge, Nose Pain, Nose Discharge, Nose Congestion, Mouth Pain, Mouth Swelling, Throat Pain, Throat Swelling, Other Respiratory: negative: Cough, Dry, Shortness of Breath, Hemoptysis, SOB with Excertion, Pleuritic Pain, Sputum, Wheezing Cardiovascular: negative: chest pain, palpitations, orthopnea, paroxysmal nocturnal dyspnea, edema, light headedness, other Gastrointestinal: negative: Nausea, Vomiting, Abdominal Pain, Diarrhea, Constipation, Melena, Hematochezia, Other Genitourinary: negative: Dysuria, Frequency, Incontinence, Hematuria, Retention , Other - Medications/Allergies Allergies/Adverse Reactions: Allergies Allergy/AdvReac Type Severity Reaction Status Date / Time adhesive Allergy Rash Verified 11/25/17 17:24 Medications: Current Medications Acetaminophen/Codeine Phosphate (Tylenol #3) 2 tab PO Q4HR PRN PRN Reason: Severe Pain (7-10) Allopurinol (Zyloprim) 100 mg PO DAILY [facility] Last Admin: 11/26/17 08:25 Dose: 100 mg Atorvastatin Calcium (Lipitor) 10 mg PO DAILY [facility] Last Admin: 11/26/17 08:25 Dose: 10 mg Carvedilol (Coreg) 25 mg PO BID [facility] Last Admin: 11/26/17 08:24 Dose: 25 mg Denosumab (Xgeva) 120 mg SC NOW [facility] Stop: 11/26/17 21:00 Last Admin: 11/26/17 11:52 Dose: 120 mg Famotidine (Pepcid) 20 mg PO 2100 [facility] Sodium Chloride (Normal Saline 0.9%) 1,000 mls @ 100 mls/hr IV .Q10H [facility] Last Admin: 11/26/17 08:26 Dose: 1,000 mls Melatonin (Melatonin) 3 mg PO HS [facility] Last Admin: 11/25/17 20:49 Dose: 3 mg Olanzapine (Zyprexa) 5 mg PO HS [facility] Last Admin: 11/25/17 21:32 Dose: 5 mg Tramadol HCl (Ultram) 50 mg PO Q4H PRN PRN Reason: Moderate Pain (4-6) Valacyclovir HCl (Valtrex) 500 mg PO Q2DAYS [facility]
[2017-11-26] MEDS: Famotidine 20 MG TAB PO SCH (20:56)
[2017-11-26] MEDS: OLANZapine 5 MG TAB PO SCH (20:56)
[2017-11-26] MEDS: Melatonin 3 MG TAB PO SCH (20:56)
[2017-11-27] MEDS: Sodium Chloride 0.9% 1,000 ML IV SCH ×3 (03:40→17:45)
[2017-11-27 05:23] LABS: Anion Gap 9 mmol/L (10-20); BUN (Urea Nitrogen) 28 mg/dL (9.8-20.1); Calc. Creatinine Clearance 39 mL/min (70-130); Calcium 10.9 mg/dL (7.8-10.44); Carbon Dioxide 26 mmol/L (23-31); Chloride 109 mmol/L (98-107); Estimated GFR-MDRD 29; Glucose 113 mg/dL (80-115); Potassium 3.7 mmol/L (3.5-5.1); Sodium 140 mmol/L (136-145)
[2017-11-27 06:09] LABS: Hemoglobin 8.9 g/dL (12.0-16.0); Lymphocytes 20 % (21-51); MDiff Complete? YES; Mean Corpuscular HGB CONC 34.5 g/dL (32.0-36.0); Mean Corpuscular Hemoglobin 30.9 pg (27.0-31.0); Mean Corpuscular Volume 89.3 fl (81.0-99.0); Metamyelocyte 4 % (0-0); Monocytes 12 % (0-10); Neutrophil 64 % (42-75); PLT Morphology Comment Appears Decreased; Platelet Count 20 thou/uL (130-400); Red Blood Cell (RBC) Count 2.88 mill/uL (4.20-5.40); White Blood Cell (WBC) Count 1.4 thou/uL (4.8-10.8)
[2017-11-27] MEDS: Carvedilol 25 MG TAB PO SCH ×2 (10:04→20:16)
[2017-11-27] MEDS: Allopurinol 100 MG TAB PO SCH (10:04)
[2017-11-27] MEDS: Atorvastatin Calcium 10 MG TAB PO SCH (10:04)
[2017-11-27] MEDS: traMADol HCl 50 MG TAB PO PRN ×2 (12:50→17:43)
--- NOTE | 2017-11-27 12:58 | PDOC.PN ---
- Subjective Encounter Start Date: 11/27/17 Encounter Start Time: 08:45 Subjective: pt up in sleeping easily aroused. - Objective Resuscitation Status: Resuscitation Status DNR:Do Not Resuscitate Vital Signs & Weight: Vital Signs (12 hours) Temp Pulse Resp BP Pulse Ox 11/27/17 08:00 97.8 F 88 16 98 11/27/17 07:40 97.8 F 88 16 116/62 98 Weight Admit Weight 180 lb 9.6 oz Weight 180 lb 9.6 oz I&O: 11/26/17 11/27/17 11/28/17 06:59 06:59 06:59 Intake Total 1750 4025 Output Total 4 Balance 1750 4021 Result Diagrams: 11/27/17 05:05 11/27/17 05:05 Phys Exam - Physical Examination HEENT: PERRLA, moist MMs, sclera anicteric, TM's clear, oral pharynx no lesions , 2+ tonsils Neck: no nodes, no JVD, supple, full ROM Respiratory: no wheezing, no rales, no rhonchi, wheezing present, clear to auscultation bilateral Cardiovascular: RRR, no significant murmur, no rub, gallop, irregular Gastrointestinal: soft mild pain on palpatiion all over abdomen Musculoskeletal: no edema, pulses present, edema present Dx/Plan - Plan 1) hypercalcemia 2) pancytopenia 3) HTn 4) follicular lymphoma plan: pt's calcium level today is 12. pt will be getting xgeva. pt received one unit of blood yesterday. pt's platelets are still low, will continue to monitor. blood pressure stable. will order bmp in am. hospice to see pt and family. will continue iv fluids. 11/27 pt's calcium is 10 today s/p xgeva. pt's daughter feels she is more confused today. will order ct brain. creatinine is improving. * . Review of Systems - Review of Systems Eyes: negative: Pain, Vision Change, Conjunctivae Inflammation, Eyelid Inflammation, Redness, Other ENT: negative: Ear Pain, Ear Discharge, Nose Pain, Nose Discharge, Nose Congestion, Mouth Pain, Mouth Swelling, Throat Pain, Throat Swelling, Other Respiratory: negative: Cough, Dry, Shortness of Breath, Hemoptysis, SOB with Excertion, Pleuritic Pain, Sputum, Wheezing Cardiovascular: negative: chest pain, palpitations, orthopnea, paroxysmal nocturnal dyspnea, edema, light headedness, other Gastrointestinal: Abdominal Pain Genitourinary: negative: Dysuria, Frequency, Incontinence, Hematuria, Retention , Other Musculoskeletal: negative: Neck Pain, Shoulder Pain, Arm Pain, Back Pain, Hand Pain, Leg Pain, Foot Pain, Other - Medications/Allergies Allergies/Adverse Reactions: Allergies Allergy/AdvReac Type Severity Reaction Status Date / Time adhesive Allergy Rash Verified 11/25/17 17:24 Medications: Current Medications Acetaminophen/Codeine Phosphate (Tylenol #3) 2 tab PO Q4HR PRN PRN Reason: Severe Pain (7-10) Allopurinol (Zyloprim) 100 mg PO DAILY [facility] Last Admin: 11/27/17 10:04 Dose: 100 mg Atorvastatin Calcium (Lipitor) 10 mg PO DAILY [facility] Last Admin: 11/27/17 10:04 Dose: 10 mg Carvedilol (Coreg) 25 mg PO BID [facility] Last Admin: 11/27/17 10:04 Dose: 25 mg Famotidine (Pepcid) 20 mg PO 2100 [facility] Last Admin: 11/26/17 20:56 Dose: 20 mg Sodium Chloride (Normal Saline 0.9%) 1,000 mls @ 50 mls/hr IV .Q20H [facility] Last Admin: 11/27/17 10:04 Dose: 1,000 mls Melatonin (Melatonin) 3 mg PO HS [facility] Last Admin: 11/26/17 20:56 Dose: 3 mg Olanzapine (Zyprexa) 5 mg PO HS [facility] Last Admin: 11/26/17 20:56 Dose: 5 mg Tramadol HCl (Ultram) 50 mg PO Q4H PRN PRN Reason: Moderate Pain (4-6) Last Admin: 11/27/17 12:50 Dose: 50 mg Valacyclovir HCl (Valtrex) 500 mg PO Q2DAYS [facility]
--- NOTE | 2017-11-27 13:41 | CT ---
CT BRAIN WITHOUT CONTRAST: HISTORY: Worsening confusion. Active lymphoma. COMPARISON: None. FINDINGS: No acute hemorrhage or infarct. No midline shift or mass effect. Very mild atrophy. No hydrocephalus. Small right frontal ostium of the inner table of the calvarial cortex. The paranasal sinuses and mas toids are clear. IMPRESSION: No acute intracranial abnormality. POS: [facility]
[2017-11-27] MEDS: OLANZapine 5 MG TAB PO SCH (20:13)
[2017-11-27] MEDS: Melatonin 3 MG TAB PO SCH (20:13)
[2017-11-27] MEDS: Famotidine 20 MG TAB PO SCH (20:13)
[2017-11-27] MEDS: valACYclovir 500 MG TAB PO SCH (20:36)
[2017-11-27] MEDS ORDERED: ALPRAZolam 0.25 MG TAB PO SCH (23:00)
[2017-11-28 08:42] LABS: Hemoglobin 9.2 g/dL (12.0-16.0); Mean Corpuscular HGB CONC 34.6 g/dL (32.0-36.0); Mean Corpuscular Hemoglobin 31.1 pg (27.0-31.0); Mean Corpuscular Volume 89.8 fl (81.0-99.0); Mean Platelet Volume 10.1 fL (7.4-10.4); Platelet Count 19 thou/uL (130-400); RBC Distribution Width 14.3 % (11.5-14.5); Red Blood Cell (RBC) Count 2.95 mill/uL (4.20-5.40); White Blood Cell (WBC) Count 0.9 thou/uL (4.8-10.8)
[2017-11-28 09:00] LABS: Anion Gap 10 mmol/L (10-20); BUN (Urea Nitrogen) 26 mg/dL (9.8-20.1); Calc. Creatinine Clearance 42 mL/min (70-130); Calcium 10.3 mg/dL (7.8-10.44); Carbon Dioxide 24 mmol/L (23-31); Chloride 110 mmol/L (98-107); Estimated GFR-MDRD 31; Glucose 74 mg/dL (80-115); Potassium 3.9 mmol/L (3.5-5.1); Sodium 140 mmol/L (136-145)
[2017-11-28 09:18] LABS: Band 18 % (5-11); Eosinophils 4 % (0-10); Lymphocytes 22 % (21-51); MDiff Complete? YES; Monocytes 16 % (0-10); Neutrophil 40 % (42-75); Nucleated RBC 1 % (0); PLT Morphology Comment Appears Decreased; RBC Morphology Normal
[2017-11-28 10:09] LABS: Bilirubin Negative (Negative); Blood, Urine Negative (Negative); Clarity CLEAR (Clear); Glucose, Urine (Dipstick) Negative (Negative); Leukocyte Negative (Negative); Nitrite Negative (Negative); Protein, Urine (Dipstick) Negative (Neg-Trace); Specific Gravity, Urine 1.008 (1.002-1.036); Urobilinogen 0.2 mg/dL (0.2-1.0)
[2017-11-28] MEDS ORDERED: ALPRAZolam 0.25 MG TAB PO PRN ×2 (10:52→10:53)
[2017-11-28] MEDS ORDERED: ALPRAZolam 0.25 MG TAB PO SCH (11:15)
[2017-11-28] MEDS: Atorvastatin Calcium 10 MG TAB PO SCH (12:23)
[2017-11-28] MEDS: Carvedilol 25 MG TAB PO SCH ×2 (12:23→21:59)
[2017-11-28] MEDS: Allopurinol 100 MG TAB PO SCH (12:23)
[2017-11-28] MEDS: Sodium Chloride 0.9% 1,000 ML IV SCH (12:25)
--- NOTE | 2017-11-28 14:42 | PDOC.PN ---
- Subjective Encounter Start Date: 11/28/17 Encounter Start Time: 09:00 Subjective: pt up in bed appears confused, very emotional - Objective Resuscitation Status: Resuscitation Status DNR:Do Not Resuscitate Vital Signs & Weight: Vital Signs (12 hours) Temp Pulse Resp BP Pulse Ox 11/28/17 12:13 99.2 F 11/28/17 08:00 97.9 F 103 H 20 99 11/28/17 07:49 97.9 F 103 H 20 131/68 98 11/28/17 04:00 98.4 F 86 12 100/55 L 98 Weight Admit Weight 180 lb 9.6 oz Weight 180 lb 9.6 oz I&O: 11/27/17 11/28/17 11/29/17 06:59 06:59 06:59 Intake Total 4025 3380 Output Total 4 Balance 4021 3380 Result Diagrams: 11/28/17 08:35 11/28/17 08:35 Phys Exam - Physical Examination HEENT: PERRLA, moist MMs, sclera anicteric, TM's clear, oral pharynx no lesions , 2+ tonsils Neck: no nodes, no JVD, supple, full ROM Respiratory: no wheezing, no rales, no rhonchi, wheezing present, clear to auscultation bilateral Cardiovascular: RRR, no significant murmur, no rub, gallop, irregular Gastrointestinal: soft, non-tender, no distention, positive bowel sounds awake, oriented x3 Deviation from normal: pt very emotional Dx/Plan - Plan 1) hypercalcemia 2) pancytopenia 3) HTn 4) follicular lymphoma plan: pt's calcium level today is 12. pt will be getting xgeva. pt received one unit of blood yesterday. pt's platelets are still low, will continue to monitor. blood pressure stable. will order bmp in am. hospice to see pt and family. will continue iv fluids. 11/27 pt's calcium is 10 today s/p xgeva. pt's daughter feels she is more confused today. will order ct brain. creatinine is improving. 11/28 ct head negative. UA checked normal. will give pt xanxa for her anxiety. Did speak with oncology about pt's overall condition. her confusion most likely due to progression of her malignancy. Calcium is normal. Home health to be set up. Hospice did come to talk to pt and family but family wants pt to be around for granddaughter graduation which is december 11. possible discharge in the next 24-48h * . Review of Systems - Review of Systems Eyes: negative: Pain, Vision Change, Conjunctivae Inflammation, Eyelid Inflammation, Redness, Other ENT: negative: Ear Pain, Ear Discharge, Nose Pain, Nose Discharge, Nose Congestion, Mouth Pain, Mouth Swelling, Throat Pain, Throat Swelling, Other Respiratory: negative: Cough, Dry, Shortness of Breath, Hemoptysis, SOB with Excertion, Pleuritic Pain, Sputum, Wheezing Cardiovascular: negative: chest pain, palpitations, orthopnea, paroxysmal nocturnal dyspnea, edema, light headedness, other Gastrointestinal: negative: Nausea, Vomiting, Abdominal Pain, Diarrhea, Constipation, Melena, Hematochezia, Other Genitourinary: negative: Dysuria, Frequency, Incontinence, Hematuria, Retention , Other Musculoskeletal: negative: Neck Pain, Shoulder Pain, Arm Pain, Back Pain, Hand Pain, Leg Pain, Foot Pain, Other - Medications/Allergies Allergies/Adverse Reactions: Allergies Allergy/AdvReac Type Severity Reaction Status Date / Time adhesive Allergy Rash Verified 11/25/17 17:24 Medications: Current Medications Acetaminophen/Codeine Phosphate (Tylenol #3) 2 tab PO Q4HR PRN PRN Reason: Severe Pain (7-10) Last Admin: 11/27/17 20:18 Dose: 2 tab Allopurinol (Zyloprim) 100 mg PO DAILY [facility] Last Admin: 11/28/17 12:23 Dose: 100 mg Alprazolam (Xanax) 0.25 mg PO BIDPRN PRN PRN Reason: Anxiety Atorvastatin Calcium (Lipitor) 10 mg PO DAILY [facility] Last Admin: 11/28/17 12:23 Dose: 10 mg Carvedilol (Coreg) 25 mg PO BID [facility] Last Admin: 11/28/17 12:23 Dose: 25 mg Sodium Chloride (Normal Saline 0.9%) 1,000 mls @ 50 mls/hr IV .Q20H [facility] Last Admin: 11/28/17 12:25 Dose: 1,000 mls Lorazepam (Ativan) 0.5 mg PO NOW [facility] Stop: 11/28/17 16:45 Melatonin (Melatonin) 3 mg PO HS [facility] Last Admin: 11/27/17 20:13 Dose: 3 mg Olanzapine (Zyprexa) 5 mg PO HS [facility] Last Admin: 11/27/17 20:13 Dose: 5 mg Pantoprazole Sodium (Protonix) 40 mg PO 2100 [facility] Tramadol HCl (Ultram) 50 mg PO Q4H PRN PRN Reason: Moderate Pain (4-6) Last Admin: 11/27/17 17:43 Dose: 50 mg Valacyclovir HCl (Valtrex) 500 mg PO Q2DAYS [facility] Last Admin: 11/27/17 20:36 Dose: 500 mg
[2017-11-28] MEDS ORDERED: Lorazepam 0.5 MG TAB PO SCH (14:45)
[2017-11-28] MEDS: OLANZapine 5 MG TAB PO SCH (21:30)
[2017-11-28] MEDS: Melatonin 3 MG TAB PO SCH (22:44)
[2017-11-28] MEDS: Cefepime 2 GM in Sodium Chloride 0.9% 100 ML IVPB SCH (23:15)
[2017-11-28] MEDS: Acetaminophen 650 MG Suppository PR PRN (23:15)
[2017-11-28] MEDS ORDERED: Vancomycin HCl 750 MG in Sodium Chloride 0.9% 250 ML 250 ML IVPB SCH (23:59)
[2017-11-29 00:26] LABS: Lactic Acid 1.6 mmol/L (0.5-2.2)
[2017-11-29] MEDS ORDERED: Lorazepam 2 MG/ML VIAL SLOW IVP SCH ×2 (02:45→07:45)
[2017-11-29] MEDS: Acetaminophen 650 MG Suppository PR PRN ×2 (06:15→17:42)
[2017-11-29] MEDS: Atorvastatin Calcium 10 MG TAB PO SCH (08:48)
[2017-11-29] MEDS: Carvedilol 25 MG TAB PO SCH ×2 (08:48→20:35)
[2017-11-29] MEDS: Allopurinol 100 MG TAB PO SCH (08:48)
[2017-11-29] MEDS: Sodium Chloride 0.9% 1,000 ML IV SCH ×2 (10:32→21:15)
[2017-11-29] MEDS: Morphine 4 MG/ML VIAL SLOW IVP PRN ×2 (10:37→17:43)
--- NOTE | 2017-11-29 10:40 | PDOC.PN ---
- Subjective Encounter Start Date: 11/29/17 Encounter Start Time: 07:00 Pt seen for followup re: acute encephalopathy. Lethargic, not answering questions, unable to complete ROS. - Objective Resuscitation Status: Resuscitation Status DNR:Do Not Resuscitate MAR Reviewed: Yes Vital Signs & Weight: Vital Signs (12 hours) Temp Pulse Resp BP Pulse Ox 11/29/17 08:00 101.4 F H 111 H 20 115/59 L 97 11/29/17 06:10 101.5 F H 11/29/17 04:06 99.2 F 11/29/17 01:50 99.3 F 11/29/17 01:00 100.8 F H 11/29/17 00:20 100.8 F H 11/28/17 23:50 101.7 F H 11/28/17 22:46 101.8 F H Weight Admit Weight 180 lb 9.6 oz Weight 180 lb 9.6 oz I&O: 11/28/17 11/29/17 11/30/17 06:59 06:59 06:59 Intake Total 3380 2070 120 Output Total 600 Balance 3380 1470 120 Result Diagrams: 11/28/17 08:35 11/28/17 08:35 Phys Exam - Physical Examination Obese HEENT: moist MMs Neck: supple Respiratory: clear to auscultation bilateral Cardiovascular: RRR Gastrointestinal: soft Neurological: moves all 4 limbs Deviation from normal: Unable to assess mood Skin: no rash Dx/Plan (1) Acute encephalopathy Code(s): G93.40 - ENCEPHALOPATHY, UNSPECIFIED Status: Acute Comment: metabolic vs. medication induced. Check calcium level. (2) Pancytopenia Code(s): D61.818 - OTHER PANCYTOPENIA Status: Chronic (3) Lymphoma Status: Chronic (4) Hypercalcemia Code(s): E83.52 - HYPERCALCEMIA Status: Resolved - Plan plan discussed w/ family * . Prognosis poor. Pt receiving ativan for agitation. Not able to take any oral medications. Likely home with home health. Review of Systems - Medications/Allergies Allergies/Adverse Reactions: Allergies Allergy/AdvReac Type Severity Reaction Status Date / Time adhesive Allergy Rash Verified 11/25/17 17:24 Medications: Current Medications Acetaminophen (Tylenol) 650 mg [place] Q6H PRN PRN Reason: FEVER > 100.4 Last Admin: 11/29/17 06:15 Dose: 650 mg Acetaminophen/Codeine Phosphate (Tylenol #3) 2 tab PO Q4HR PRN PRN Reason: Severe Pain (7-10) Last Admin: 11/27/17 20:18 Dose: 2 tab Allopurinol (Zyloprim) 100 mg PO DAILY [facility] Last Admin: 11/29/17 08:48 Dose: Not Given Alprazolam (Xanax) 0.25 mg PO BIDPRN PRN PRN Reason: Anxiety Last Admin: 11/28/17 18:27 Dose: 0.25 mg Atorvastatin Calcium (Lipitor) 10 mg PO DAILY [facility] Last Admin: 11/29/17 08:48 Dose: Not Given Carvedilol (Coreg) 25 mg PO BID [facility] Last Admin: 11/29/17 08:48 Dose: Not Given Sodium Chloride (Normal Saline 0.9%) 1,000 mls @ 50 mls/hr IV .Q20H [facility] Last Admin: 11/29/17 10:32 Dose: 1,000 mls Cefepime HCl 2 gm/ Sodium (Chloride) 100 mls @ 200 mls/hr IVPB 1100,2300 [facility] Last Admin: 11/28/17 23:15 Dose: 100 mls Vancomycin HCl 750 mg/ Sodium (Chloride) 250 mls @ 250 mls/hr IVPB 2359 [facility] Last Admin: 11/28/17 23:56 Dose: 250 mls Lorazepam (Ativan) 0.5 mg SLOW IVP Q6H PRN PRN Reason: Anxiety/Agitation Melatonin (Melatonin) 3 mg PO HS [facility] Last Admin: 11/28/17 22:44 Dose: Not Given Morphine Sulfate (Morphine) 2 mg SLOW IVP Q6H PRN PRN Reason: Pain Last Admin: 11/29/17 10:37 Dose: 2 mg Olanzapine (Zyprexa) 5 mg PO HS [facility] Last Admin: 11/28/17 21:30 Dose: 5 mg Tramadol HCl (Ultram) 50 mg PO Q4H PRN PRN Reason: Moderate Pain (4-6) Last Admin: 11/27/17 17:43 Dose: 50 mg Valacyclovir HCl (Valtrex) 500 mg PO Q2DAYS [facility] Last Admin: 11/27/17 20:36 Dose: 500 mg
[2017-11-29 11:02] LABS: Hemoglobin 7.9 g/dL (12.0-16.0); Mean Corpuscular HGB CONC 34.8 g/dL (32.0-36.0); Platelet Count 14 thou/uL (130-400); RBC Distribution Width 13.8 % (11.5-14.5); Red Blood Cell (RBC) Count 2.53 mill/uL (4.20-5.40); White Blood Cell (WBC) Count 0.5 thou/uL (4.8-10.8)
[2017-11-29 11:06] LABS: Anion Gap 7 mmol/L (10-20); BUN (Urea Nitrogen) 24 mg/dL (9.8-20.1); Calc. Creatinine Clearance 46 mL/min (70-130); Calcium 9.8 mg/dL (7.8-10.44); Carbon Dioxide 26 mmol/L (23-31); Chloride 109 mmol/L (98-107); Estimated GFR-MDRD 35; Glucose 77 mg/dL (80-115); Sodium 139 mmol/L (136-145)
[2017-11-29 11:34] LABS: Band 19 % (5-11); Blast 1 % (0-0); Eosinophils 2 % (0-10); Lymphocytes 19 % (21-51); MDiff Complete? YES; Metamyelocyte 3 % (0-0); Monocytes 1 % (0-10); Myelocyte 1 % (0-0); Neutrophil 48 % (42-75); Reactive Lymphocytes 4 % (0-10); Reflex for Review?? NO
[2017-11-29] MEDS: Cefepime 2 GM in Sodium Chloride 0.9% 100 ML IVPB SCH ×2 (12:54→22:35)
[2017-11-29] MEDS: OLANZapine 5 MG TAB PO SCH (20:35)
[2017-11-29] MEDS: Melatonin 3 MG TAB PO SCH (20:35)
[2017-11-29] MEDS: valACYclovir 500 MG TAB PO SCH (20:35)
[2017-11-29 23:25] LABS: Vancomycin, Random 6.4 ug/mL (See Comment)
[2017-11-29] MEDS: Vancomycin HCl 750 MG in Sodium Chloride 0.9% 250 ML 250 ML IVPB SCH (23:39)
[2017-11-29] MEDS: Lorazepam 2 MG/ML VIAL SLOW IVP PRN (23:47)
[2017-11-30] MEDS: Acetaminophen 650 MG Suppository PR PRN ×2 (02:09→11:42)
[2017-11-30] MEDS: Morphine 4 MG/ML VIAL SLOW IVP PRN (07:47)
[2017-11-30] MEDS ORDERED: Meropenem 1 GM in Sodium Chloride 0.9% 100 ML IVPB SCH (09:00)
[2017-11-30] MEDS: Allopurinol 100 MG TAB PO SCH (09:12)
[2017-11-30] MEDS: Atorvastatin Calcium 10 MG TAB PO SCH (09:12)
[2017-11-30] MEDS: Carvedilol 25 MG TAB PO SCH (09:12)
[2017-11-30] MEDS: Sodium Chloride 0.9% 1,000 ML IV SCH (09:12)
--- NOTE | 2017-11-30 09:42 | RAD ---
ONE VIEW CHEST: COMPARISON: 04/17/17, 10/14/07. HISTORY: Fever. Infiltrates. FINDINGS: Stable right-sided MediPort catheter. Normal cardiac silhouette. The pulmonary vessels and hilum ar e normal. Costophrenic angles are clear. Focal opacities in the left lung base. No pneumothorax. No osseous abnormalities. Calcification of mitral annulus is noted. IMPRESSION: Focal opacities in the left lung base. Better interrogation with CT. POS: [facility]
[2017-11-30] MEDS: MEROPENEM 1 GM/50 ML 1 GM in Premix Bag 1 BAG IVPB SCH ×2 (10:05→16:39)
[2017-11-30] MEDS: Vancomycin HCl 750 MG in Sodium Chloride 0.9% 250 ML 250 ML IVPB SCH (11:24)
[2017-11-30] MEDS: Lorazepam 2 MG/ML VIAL SLOW IVP PRN ×2 (11:37→17:38)
[2017-11-30] MEDS ORDERED: Morphine 4 MG/ML VIAL SLOW IVP PRN (12:25)
[2017-11-30 12:38] VITALS: BP 122/63
[2017-11-30] MEDS ORDERED: Lorazepam 2 MG/ML VIAL SLOW IVP SCH (13:15)
[2017-11-30 15:53] VITALS: TEMP 99.6
--- NOTE | 2017-11-30 19:43 | DIS ---
DATE OF ADMISSION: 11/25/2017 DATE OF DISCHARGE: 11/30/2017 PRIMARY CARE PROVIDER: Dinora Rand D.O. DISCHARGE DIAGNOSES: 1. Myelodysplastic syndrome. 2. Hypercalcemia. 3. Pancytopenia. 4. Acute on chronic renal failure. CONSULTATIONS DURING THIS HOSPITALIZATION: Oncology, Selene Gomez. CONDITION OF PATIENT ON THE DISCHARGE: I assessed Ms. Cutler on the day of discharge. She is letharg ic, answering a few questions. She denies chest pain or shortness of breath. Vital signs are stable . She spiked fevers last night. S1 and S2 are heard, regular. Lungs are clear to auscultation bila terally. DISCHARGE MEDICATIONS: In addition to the preadmission home medications as dictated on history and p hysical note by Dr. Turner on 11/25/2017, she is being discharged on levofloxacin 500 mg daily for 7 days. HOSPITAL COURSE: Ms. Cutler is a pleasant 72-year-old lady, who was admitted to [facility] for hypercalcemia as well as myelodysplastic syndrome with pancytopenia. She was seen b y Medical Oncology Service. She received intravenous fluids both for hypercalcemia and acute renal f ailure. Her creatinine improved to 1.47, down from 2.01. Hypercalcemia, resolved. She continued to be pancytopenic and declined during this hospitalization. Starting 11/28/2017, she started spiking fevers. At the time of this dictation, all cultures are negative. Chest x-ray done on 11/30/2017 showed left lower lobe opacities. It is unclear whether she has pneumonia. Palliative Care Service was also consulted and were actively engaged in discussions with the family. After discussions with patient and family, goals of care were changed to comfort measures. Hospice Service was consulted and she is being discharged home with hospice at home. Many thanks for allowing me to participate in your patient's care. Please feel free to contact me wi th any questions or concerns. DISCHARGE DESTINATION: Home for home hospice. TOTAL AMOUNT OF TIME SPENT COORDINATING THIS DISCHARGE: 32 minutes.
== END 2017-11-30 19:36 | disposition hospice, home (50) | DRG 640 ==
LOC: ONC/OP 09:28 → ONC 11:54
PROVIDERS: ADMIT Internal Medicine; ATTEND Internal Medicine
PROC: 30233N1 Transfusion of Nonautologous Red Blood Cells into Peripheral Vein, Percutaneous Approach (ICD-10-PCS; principal; 2017-11-26)
DX: E83.52 Hypercalcemia (principal); G93.40 Encephalopathy, unspecified; C94.6 Myelodysplastic disease, not elsewhere classified; N17.9 Acute kidney failure, unspecified; D61.818 Other pancytopenia; C82.90 Follicular lymphoma, unspecified, unspecified site; Z51.5 Encounter for palliative care; I12.9 Hypertensive chronic kidney disease with stage 1 through stage 4 chronic kidney disease, or unspecified chronic kidney disease; N18.9 Chronic kidney disease, unspecified; I48.0 Paroxysmal atrial fibrillation; D46.9 Myelodysplastic syndrome, unspecified; Z66 Do not resuscitate
CPT/HCPCS: 36415; 36430; 70450; 71045; 80048; 80053; 80202; 81003; 82248; 83605; 83615; 83970; 84100; 84550; 85025; 86850; 86900; 86901; 87040; A4216; G8978-GP-CJ; G8979-GP-CI; J0692; J0897; J1100; J1642; J2060; J2185; J2270; J3370; J7050; P9016; S0028